=== PATIENT | female | born 1960 | race African-American/Black ===

== ENCOUNTER → 2016-08-10 | Outpatient (CLI) | payer MEDICARE, MEDICAID ==
[~2016-08-10] MED LIST: ASPI-1035 PO; ATOR40TA70 PO; CLON0.1T PO; DEXL60CA3 PO; DIPH50CA4 PO; DOXA1TAB PO; FLUT9.9S NS; HYDR-3927 PO; HYDR25TA PO; LOSA100T14 PO; OMEP20CA4 PO; ONDA4TAB5 PO
== END | disposition home or self-care (01) ==
LOC: RAD 12:38
PROVIDERS: ATTEND Podiatrist Foot & Ankle Surgery
DX: S93.402A Sprain of unspecified ligament of left ankle, initial encounter (principal); S93.602A Unspecified sprain of left foot, initial encounter; X58.XXXA Exposure to other specified factors, initial encounter; Y93.89 Activity, other specified; Y92.89 Other specified places as the place of occurrence of the external cause; Y99.8 Other external cause status
CPT/HCPCS: 73610; 73630

== ENCOUNTER → 2017-05-12 | Outpatient (CLI) | payer MEDICARE, MEDICAID ==
[~2017-05-12] MED LIST changes: -ASPI-1035 PO; +ASPI-1159 PO; -HYDR-3927 PO; +HYDR-4001 PO
== END | disposition home or self-care (01) ==
LOC: MAMMO 09:37
PROVIDERS: ATTEND Specialist
DX: Z12.31 Encounter for screening mammogram for malignant neoplasm of breast (principal)
CPT/HCPCS: 77067

== ENCOUNTER 2017-07-15 14:49 | Inpatient (IN) | payer OTHER, MEDICAID ==
[~2017-07-15] VITALS: Ht 157.5 cm; Wt 97.5 kg
[2017-07-15] MEDS ORDERED: ASPIRIN 81MG TABLET PO ONE (16:45)
[2017-07-15] MEDS: NITROGLYCERIN 0.4MG TABLET SL SL PRN ×2 (16:58→17:47)
[2017-07-15 17:06] LABS: BASOPHILS % 0.9 % (0.0-2.0); EOSINOPHILS % 3.5 % (0.0-5.0); HEMATOCRIT. 37.3 % (36.0-48.0); HEMOGLOBIN. 12.3 g/dL (12.0-16.0); LYMPHOCYTES % 13.7 % (20.0-50.0); MEAN CORPUSCULAR VOLUME 84.9 fL (81.0-99.0); MEAN PLATELET VOLUME 10.9 fl (7.4-10.4); MONOCYTES % 6.4 % (2.0-8.0); NEUTROPHILS % 75.5 % (40.0-76.0); PLATELET 187 x1000/uL (130-400); RED BLOOD CELL COUNT 4.39 mill/uL (4.2-5.4); RED CELL DISTRIBUTION WIDTH 14.4 % (11.6-14.6)
[2017-07-15 17:13] LABS: INR 1.1
[2017-07-15 17:16] LABS: CHLORIDE 108 mEq/L (98-107)
[2017-07-15] MEDS ORDERED: CYCLOBENZAPRINE 10MG TABLET PO ONE (18:15)
[2017-07-15] MEDS ORDERED: KETOROLAC 30MG/ML VIAL IV STA (19:49)
[2017-07-15] MEDS ORDERED: CLONIDINE 0.1MG TABLET PO ONE (20:00)
[2017-07-16] MEDS ORDERED: CLONIDINE 0.2MG TABLET ONE (01:17)
[2017-07-16 02:00] VITALS: BP 179/89
[2017-07-16 04:00] VITALS: BP 162/81
[2017-07-16] MEDS: MORPHINE SULFATE 4 MG/ML CPJ (NOT FOR IM USE) IV PRN ×3 (04:14→16:50)
[2017-07-16] MEDS: NITROGLYCERIN OINT 1GM/INCH UDPKT TD SCH ×2 (06:06→14:00)
[2017-07-16 07:21] LABS: HDL CHOLESTEROL 36 mg/dL (40-59); LDL CHOLESTEROL 158 mg/dL (5-100)
[2017-07-16 08:00] VITALS: BP 160/93
[2017-07-16] MEDS ORDERED: METOPROLOL TARTRATE 50MG TABLET PO SCH (09:00)
[2017-07-16] MEDS ORDERED: ASPIRIN 325MG EC TABLET PO SCH (09:00)
[2017-07-16] MEDS ORDERED: CLONIDINE 0.1MG TABLET PO PRN (09:15)
[2017-07-16] MEDS ORDERED: OMEPRAZOLE 20MG CAPSULE EXTENDED RELEASE PO SCH (09:15)
[2017-07-16] MEDS ORDERED: LOSARTAN POTASSIUM 100 MG TABLET PO SCH (09:15)
[2017-07-16] MEDS ORDERED: REGADENOSON 0.4 MG/5 ML IV NR (11:15)
[2017-07-16] MEDS ORDERED: CLONIDINE 0.1MG TABLET PO SCH (11:24)
[2017-07-16] MEDS ORDERED: AMLODIPINE 2.5MG TABLET PO SCH (11:25)
[2017-07-16] MEDS ORDERED: REGADENOSON 0.4 MG/5 ML IV ONE (12:14)
[2017-07-16 16:00] VITALS: BP 130/89
[2017-07-16 16:50] VITALS: BP 160/93
[2017-07-16] MEDS ORDERED: ATORVASTATIN CALCIUM 40MG TABLET PO SCH (21:00)
== END 2017-07-16 19:40 | disposition home or self-care (01) | DRG 311 ==
LOC: ER 15:08 → 8WST 20:24 → EDBEDREQTM 20:30 → EDBEDREQ 20:30 → ENRESERV 21:55
PROVIDERS: ADMIT Internal Medicine; ATTEND Internal Medicine
DX: I20.0 Unstable angina (principal); I11.9 Hypertensive heart disease without heart failure; E66.9 Obesity, unspecified; K21.9 Gastro-esophageal reflux disease without esophagitis; E78.00 Pure hypercholesterolemia, unspecified; E78.5 Hyperlipidemia, unspecified; F12.90 Cannabis use, unspecified, uncomplicated; Z79.82 Long term (current) use of aspirin; Z79.899 Other long term (current) drug therapy; Z86.73 Personal history of transient ischemic attack (TIA), and cerebral infarction without residual deficits
CPT/HCPCS: 36415; 71045; 78452; 80053; 80061; 83880; 84443; 84484; 85025; 85610; 93005; 93017; 93306; 96374; 99291; A9500; J1885; J2270; J2785

== ENCOUNTER 2017-12-20 09:27 | Observation (INO) | payer OTHER, MEDICAID ==
[~2017-12-20] VITALS: Ht 157.5 cm; Wt 95.3 kg
[2017-12-20] MEDS ORDERED: METHYLPREDNISOLONE SOD SUCC 125 MG/2 ML VIAL IV STA (09:31)
[2017-12-20] MEDS ORDERED: IPRATROPIUM BROMIDE (0.02%) 0.5MG/2.5ML NEB HHN STA (09:31)
[2017-12-20] MEDS: ALBUTEROL (0.083%) 2.5MG/3ML NEB HHN SCH ×2 (09:45→09:46)
[2017-12-20] MEDS ORDERED: MAGNESIUM 2 G PREMIX 50 ML IV ONE (09:45)
[2017-12-20] MEDS ORDERED: NITROGLYCERIN OINT 1GM/INCH UDPKT TD ONE (10:00)
[2017-12-20 11:28] LABS: BASOPHILS % 0.3 % (0.0-2.0); EOSINOPHILS % 1.9 % (0.0-5.0); HEMOGLOBIN. 12.3 g/dL (12.0-16.0); LYMPHOCYTES % 11.9 % (20.0-50.0); MEAN CORPUSCULAR VOLUME 87.3 fL (81.0-99.0); MEAN PLATELET VOLUME 10.8 fl (7.4-10.4); MONOCYTES % 6.5 % (2.0-8.0); NEUTROPHILS % 79.4 % (40.0-76.0); PLATELET 166 x1000/uL (130-400); RED BLOOD CELL COUNT 4.24 mill/uL (4.2-5.4)
[2017-12-20 11:35] LABS: CHLORIDE 107 mEq/L (98-107)
[2017-12-20 11:36] LABS: INR 1.2; PROTHROMBIN TIME 12.5 sec (9.1-11.1)
[2017-12-20] MEDS ORDERED: HYDROCODONE/ACETAMINOPHEN 5/325MG TABLET PO ONE (14:30)
[2017-12-20] MEDS ORDERED: ACETAMINOPHEN 325MG TABLET PO PRN (14:45)
[2017-12-20] MEDS ORDERED: ACETAMINOPHEN 650MG SUPP PR PRN (14:45)
[2017-12-20] MEDS ORDERED: IPRATROPIUM/ALBUTEROL 0.5-3(2.5)MG/3ML NEB INH PRN (14:45)
[2017-12-20] MEDS ORDERED: DIPHENHYDRAMINE 50MG/ML VIAL IV PRN (14:45)
[2017-12-20] MEDS ORDERED: MAGNESIUM/ALUMINUM HYDROXIDE/SIMETHICONE 30ML UDC PO PRN (14:45)
[2017-12-20] MEDS ORDERED: NA PHOS,M-B/NA PHOS,DI-BA ENEMA 118ML PR PRN (14:45)
[2017-12-20] MEDS: CLONIDINE 0.1MG TABLET PO PRN ×3 (16:13→23:23)
[2017-12-20 17:30] VITALS: BP 169/99
[2017-12-20] MEDS ORDERED: ONDANSETRON 4MG ODT PO PRN (18:00)
[2017-12-20] MEDS ORDERED: MECLIZINE 25MG TABLET PO PRN (18:30)
[2017-12-20] MEDS: MONTELUKAST SODIUM 10MG TABLET PO SCH (18:39)
[2017-12-20] MEDS: METHYLPREDNISOLONE SOD SUCC 40 MG/ML VIAL IV SCH (18:40)
[2017-12-20] MEDS: HYDROCHLOROTHIAZIDE 25MG TABLET PO SCH (18:40)
[2017-12-20] MEDS: HYDROCODONE/ACETAMINOPHEN 5/325MG TABLET PO PRN ×2 (18:44→23:15)
[2017-12-20 18:56] LABS: BG BASE EXCESS -4.8 mmol/L (-2.0-2.0); BG CARBOXYHEMOGLOBIN 0.5 % (0.5-1.5); BG DEOXYHEMOGLOBIN 5.6 % (0.0-5.0); BG FRACTION INSPIRED OXYGEN 21; BG HCO3 ACT 19.1 mmol/L (22.0-26.0); BG METHEMOGLOBIN 0.2 % (0.0-1.5); BG OXYGEN SATURATION 94.4 % (92.0-98.5); BG OXYHEMOGLOBIN 93.7 % (94.0-97.0); BG PCO2 32.2 mmHg (35.0-45.0); BG PH 7.392 (7.350-7.450); BG PO2 73.2 mmHg (75.0-100.0); BG SAMPLE SITE RIGHT BRACHIAL; BG TOTAL HEMOGLOBIN 12.9 g/dL (12.0-18.0); BG VENT MODE ROOM AIR
[2017-12-20 19:21] LABS: CLARITY URINE CLEAR (CLEAR); COLOR URINE YELLOW (YELLOW); KETONES URINE NEGATIVE (NEGATIVE); LEUKOCYTE ESTERASE URINE TRACE (NEGATIVE); NITRITE URINE NEGATIVE (NEGATIVE); OCCULT BLOOD URINE NEGATIVE (NEGATIVE); PROTEIN URINE 2+ (NEGATIVE); SPECIFIC GRAVITY URINE 1.013 (1.005-1.030); UROBILINOGEN URINE 0.2 E.U./dL (0.2-1.0)
[2017-12-20 19:56] LABS: METHADONE URINE SCREEN NEGATIVE (NEGATIVE); OPIATES URINE SCREEN NEGATIVE (NEGATIVE)
[2017-12-20 19:57] LABS: *AMPHETAMINES SCREEN URINE NEGATIVE (NEGATIVE); *BARBITURATES SCREEN URINE NEGATIVE (NEGATIVE); *BENZODIAZEPINES SCREEN URINE NEGATIVE (NEGATIVE); *COCAINE SCREEN URINE NEGATIVE (NEGATIVE); CANNABINOID URINE SCREEN PRESUMTIVE POSITIVE (NEGATIVE); PHENCYCLIDINE URINE SCREEN NEGATIVE (NEGATIVE)
[2017-12-20 20:00] VITALS: BP 187/96
[2017-12-20] MEDS ORDERED: LEVOFLOXACIN 500MG PREMIX 100 ML IV SCH (20:00)
[2017-12-20] MEDS ORDERED: ENOXAPARIN 40MG/0.4ML SYR SUBCUT SCH (20:00)
[2017-12-20] MEDS ORDERED: CLONIDINE 0.1MG TABLET PO NR (20:27)
[2017-12-20] MEDS: FAMOTIDINE 20MG/2ML VIAL IV SCH (20:38)
[2017-12-20] MEDS ORDERED: ATORVASTATIN CALCIUM 40MG TABLET PO SCH (21:00)
[2017-12-21] VITALS: BP_SYST 166; BP_SYST 167; BP_SYST 181; BP_DIAS 85; BP_DIAS 93; BP_DIAS 94
[2017-12-21 00:02] LABS: CREATINE KINASE 118 IU/L (26-192)
[2017-12-21 00:03] LABS: CREATINE KINASE MB FRACTION 1.9 ng/mL (0.5-3.6)
[2017-12-21] MEDS: METHYLPREDNISOLONE SOD SUCC 40 MG/ML VIAL IV SCH ×3 (01:35→17:43)
[2017-12-21 04:00] VITALS: BP 153/76
[2017-12-21] MEDS: IPRATROPIUM/ALBUTEROL 0.5-3(2.5)MG/3ML NEB HHN SCH ×3 (04:40→13:59)
[2017-12-21 05:49] LABS: BASOPHILS % 0.1 % (0.0-2.0); HEMATOCRIT. 36.3 % (36.0-48.0); MEAN CORPUSCULAR HEMOGLOBIN 28.6 pg (28.0-32.0); MEAN CORPUSCULAR VOLUME 86.8 fL (81.0-99.0); MEAN PLATELET VOLUME 11.2 fl (7.4-10.4); MONOCYTES % 1.3 % (2.0-8.0); NEUTROPHILS % 89.6 % (40.0-76.0); PLATELET 208 x1000/uL (130-400); RED BLOOD CELL COUNT 4.19 mill/uL (4.2-5.4); RED CELL DISTRIBUTION WIDTH 15.2 % (11.6-14.6)
[2017-12-21 06:31] LABS: CHLORIDE 105 mEq/L (98-107)
[2017-12-21 06:46] LABS: CREATINE KINASE MB FRACTION 1.8 ng/mL (0.5-3.6)
[2017-12-21 06:47] LABS: CREATINE KINASE 105 IU/L (26-192)
[2017-12-21 06:48] LABS: LDL CHOLESTEROL 181 mg/dL (5-100)
[2017-12-21 06:49] LABS: HDL CHOLESTEROL 44 mg/dL (40-59)
[2017-12-21] MEDS: FAMOTIDINE 20MG/2ML VIAL IV SCH (07:47)
[2017-12-21] MEDS: HYDROCHLOROTHIAZIDE 25MG TABLET PO SCH (07:47)
[2017-12-21 08:00] VITALS: BP 171/89
[2017-12-21] MEDS ORDERED: MEDICATION NOT ON FORMULARY EA (Losartan Potassium 1 TAB) PO SCH (09:00)
[2017-12-21] MEDS ORDERED: MEDICATION NOT ON FORMULARY EA (Doxazosin Mesylate 1 MG) PO SCH (09:00)
[2017-12-21] MEDS ORDERED: LOSARTAN POTASSIUM 100 MG TABLET PO SCH (09:00)
[2017-12-21] MEDS ORDERED: DOXAZOSIN MESYLATE 2MG TABLET PO SCH (09:00)
[2017-12-21] MEDS ORDERED: ASPIRIN 81MG TABLET PO SCH (09:00)
[2017-12-21] MEDS ORDERED: AMLODIPINE 5MG TABLET PO SCH (10:30)
[2017-12-21] MEDS ORDERED: HYDRALAZINE HCL 50MG TABLET PO SCH ×2 (10:30→21:00)
[2017-12-21 12:00] VITALS: BP_SYST 138; BP_SYST 169; BP_SYST 171; BP_DIAS 76; BP_DIAS 81; BP_DIAS 85
[2017-12-21] MEDS ORDERED: SIMETHICONE 80MG TABLET CHEW PO PRN (12:00)
[2017-12-21 16:00] VITALS: BP 146/74
[2017-12-21] MEDS: MONTELUKAST SODIUM 10MG TABLET PO SCH (17:35)
[2017-12-21 18:58] VITALS: BP 146/74
[2017-12-21] MEDS ORDERED: ENOXAPARIN 30MG/0.3ML SYR SUBCUT SCH (21:00)
[2017-12-22] MEDS ORDERED: AMLODIPINE 5MG TABLET PO SCH (09:00)
== END 2017-12-21 20:15 | disposition home or self-care (01) ==
LOC: ER 09:27 → INTOOBSV 12:32 → 5WST 12:32 → ENRESERV 15:40
PROVIDERS: ADMIT Internal Medicine; ATTEND Internal Medicine
DX: R07.89 Other chest pain (principal); R42 Dizziness and giddiness; R55 Syncope and collapse; R06.02 Shortness of breath; R10.9 Unspecified abdominal pain; E78.00 Pure hypercholesterolemia, unspecified; F12.90 Cannabis use, unspecified, uncomplicated; F48.8 Other specified nonpsychotic mental disorders; I63.9 Cerebral infarction, unspecified; J44.1 Chronic obstructive pulmonary disease with (acute) exacerbation; I11.0 Hypertensive heart disease with heart failure; I50.9 Heart failure, unspecified; Z87.891 Personal history of nicotine dependence; Z79.899 Other long term (current) drug therapy
CPT/HCPCS: 36415; 36600; 70450; 70551; 71045; 74018; 80053; 80061; 80305; 81003; 82375; 82550; 82553; 82805; 83036; 83690; 83880; 84439; 84443; 84484; 85025; 85379; 85610; 93005; 93306; 93880; 94640; 96365; 96366; 96375; 96376; 97162; 99285; C1893; G0378; J1650; J2920; J2930; J3490; J7611; J7620; J1956; J8597

== ENCOUNTER 2019-03-02 00:43 | Inpatient (IN) | payer OTHER, MEDICAID ==
[~2019-03-02] VITALS: Ht 157.5 cm; Wt 92.5 kg
[~2019-03-02 00:43] MED LIST changes: -ASPI-1159 PO; +ASPI-1393 PO; -DEXL60CA3 PO; -LOSA100T14 PO; +LOSA100T32 PO
[2019-03-02] MEDS ORDERED: MORPHINE SULFATE 4 MG/ML CPJ (NOT FOR IM USE) IV STA (00:59)
[2019-03-02] MEDS ORDERED: ONDANSETRON HCL 4MG/2ML INJ IV STA (00:59)
[2019-03-02] MEDS ORDERED: SODIUM CHLORIDE 0.9% 1,000 ML IV ONE (00:59)
[2019-03-02] MEDS ORDERED: DILTIAZEM HCL 5MG/ML 5ML VIAL IV ONE (01:45)
[2019-03-02 01:47] LABS: BASOPHILS % 0.9 % (0.0-2.0); EOSINOPHILS % 0.6 % (0.0-5.0); HEMATOCRIT. 50.2 % (36.0-48.0); HEMOGLOBIN. 16.3 g/dL (12.0-16.0); LYMPHOCYTES % 9.4 % (20.0-50.0); MEAN CORPUSCULAR HEMOGLOBIN 28.9 pg (28.0-32.0); MEAN CORPUSCULAR VOLUME 88.9 fL (81.0-99.0); MEAN PLATELET VOLUME 11.3 fl (7.4-10.4); MONOCYTES % 5.4 % (2.0-8.0); NEUTROPHILS % 83.7 % (40.0-76.0); PLATELET 212 x1000/uL (130-400); RED BLOOD CELL COUNT 5.65 mill/uL (4.2-5.4); RED CELL DISTRIBUTION WIDTH 14.7 % (11.6-14.6)
[2019-03-02 02:29] LABS: CHLORIDE 113 mEq/L (98-107)
[2019-03-02 02:34] LABS: ETHANOL BLOOD < 10 mg/dL
[2019-03-02 04:15] LABS: CLARITY URINE CLOUDY (CLEAR); COLOR URINE YELLOW (YELLOW); KETONES URINE 1+ (NEGATIVE); LEUKOCYTE ESTERASE URINE 1+ (NEGATIVE); NITRITE URINE NEGATIVE (NEGATIVE); OCCULT BLOOD URINE TRACE (NEGATIVE); PH URINE 5.5 (4.5-8.0); PROTEIN URINE 4+ (NEGATIVE); SPECIFIC GRAVITY URINE 1.017 (1.005-1.030); UROBILINOGEN URINE 0.2 E.U./dL (0.2-1.0)
[2019-03-02 04:28] LABS: *AMPHETAMINES SCREEN URINE NEGATIVE (NEGATIVE); *BARBITURATES SCREEN URINE NEGATIVE (NEGATIVE); *BENZODIAZEPINES SCREEN URINE NEGATIVE (NEGATIVE); *COCAINE SCREEN URINE NEGATIVE (NEGATIVE); METHADONE URINE SCREEN NEGATIVE (NEGATIVE); OPIATES URINE SCREEN PRESUMTIVE POSITIVE (NEGATIVE)
[2019-03-02 04:29] LABS: CANNABINOID URINE SCREEN PRESUMTIVE POSITIVE (NEGATIVE); PHENCYCLIDINE URINE SCREEN NEGATIVE (NEGATIVE)
[2019-03-02] MEDS ORDERED: LEVOFLOXACIN 750MG PREMIX 150 ML IV ONE (05:15)
[2019-03-02] MEDS ORDERED: HYDRALAZINE 20MG/ML VIAL IV ONE (05:30)
[2019-03-02] MEDS ORDERED: MORPHINE SULFATE 2 MG/ML CPJ (NOT FOR IM USE) IV SCH (09:00)
[2019-03-02 10:00] VITALS: BP 167/78
[2019-03-02] MEDS ORDERED: LIDOCAINE HCL/PF 1% 2ML VIAL ONE (10:26)
[2019-03-02 11:00] VITALS: BP 165/78
[2019-03-02 12:00] VITALS: BP 179/91
[2019-03-02] MEDS ORDERED: IPRATROPIUM/ALBUTEROL 0.5-3(2.5)MG/3ML NEB NEB PRN (12:00)
[2019-03-02] MEDS ORDERED: DIPHENHYDRAMINE 50MG/ML VIAL IV PRN (12:00)
[2019-03-02] MEDS ORDERED: CLONIDINE 0.1MG TABLET PO PRN (12:00)
[2019-03-02] MEDS ORDERED: NA PHOS,M-B/NA PHOS,DI-BA ENEMA 118ML PR PRN (12:00)
[2019-03-02] MEDS ORDERED: ACETAMINOPHEN 650MG SUPP PR PRN (12:00)
[2019-03-02] MEDS ORDERED: DOCUSATE SODIUM 100MG CAPSULE PO PRN (12:00)
[2019-03-02] MEDS ORDERED: GUAIFENESIN 200MG/10ML SUGAR FREE UDC PO PRN (12:00)
[2019-03-02] MEDS ORDERED: ONDANSETRON HCL 4MG/2ML INJ IV PRN (12:00)
[2019-03-02] MEDS ORDERED: HYDROCODONE/ACETAMINOPHEN 5/325MG TABLET PO PRN (12:00)
[2019-03-02] MEDS ORDERED: MAGNESIUM/ALUMINUM HYDROXIDE/SIMETHICONE 30ML UDC PO PRN (12:00)
[2019-03-02] MEDS ORDERED: DILTIAZEM HCL 5MG/ML 5ML VIAL IV PRN (12:00)
[2019-03-02] MEDS ORDERED: LORAZEPAM 0.5MG TABLET PO PRN (12:00)
[2019-03-02] MEDS ORDERED: ACETAMINOPHEN 325MG TABLET PO PRN (12:00)
[2019-03-02 12:44] LABS: BASOPHILS % 0.5 % (0.0-2.0); EOSINOPHILS % 1.1 % (0.0-5.0); HEMATOCRIT. 38.7 % (36.0-48.0); HEMOGLOBIN. 12.7 g/dL (12.0-16.0); LYMPHOCYTES % 12.8 % (20.0-50.0); MEAN CORPUSCULAR VOLUME 88.2 fL (81.0-99.0); MEAN PLATELET VOLUME 10.8 fl (7.4-10.4); MONOCYTES % 8.8 % (2.0-8.0); NEUTROPHILS % 76.8 % (40.0-76.0); PLATELET 225 x1000/uL (130-400); RED BLOOD CELL COUNT 4.38 mill/uL (4.2-5.4); RED CELL DISTRIBUTION WIDTH 14.7 % (11.6-14.6)
[2019-03-02 12:59] LABS: BG BASE EXCESS -0.5 mmol/L (-2.0-2.0); BG CARBOXYHEMOGLOBIN 0.5 % (0.5-1.5); BG FRACTION INSPIRED OXYGEN 28; BG HCO3 ACT 24.7 mmol/L (22.0-26.0); BG METHEMOGLOBIN 0.1 % (0.0-1.5); BG OXYHEMOGLOBIN 93.4 % (94.0-97.0); BG PCO2 42.8 mmHg (35.0-45.0); BG PH 7.379 (7.350-7.450); BG PO2 69.1 mmHg (75.0-100.0); BG SAMPLE SITE RIGHT BRACHIAL; BG TOTAL HEMOGLOBIN 13.4 g/dL (12.0-18.0); BG VENT MODE NASAL CANNULA
[2019-03-02] MEDS: PIPERACILLIN/TAZOBACTAM 3.375 G in DEXT 5% WATER 100 ML IV SCH ×2 (13:13→18:29)
[2019-03-02] MEDS: HYDRALAZINE 20MG/ML VIAL IV PRN (13:14)
[2019-03-02] MEDS: FAMOTIDINE 20MG/2ML VIAL IV SCH (13:15)
[2019-03-02] MEDS ORDERED: DEXTROSE 50% WATER 50ML SYRINGE IV PRN (13:45)
[2019-03-02] MEDS: MORPHINE SULFATE 4 MG/ML CPJ (NOT FOR IM USE) IV PRN (14:44)
[2019-03-02] MEDS: ASPIRIN 81MG EC TABLET PO SCH (14:55)
[2019-03-02] MEDS: LOSARTAN POTASSIUM 100 MG TABLET PO SCH (14:55)
[2019-03-02] MEDS: CLONIDINE 0.1MG TABLET PO SCH ×2 (14:56→22:24)
[2019-03-02] MEDS: ENOXAPARIN 40MG/0.4ML SYR SUBCUT SCH (14:57)
[2019-03-02] MEDS ORDERED: DILTIAZEM HCL 120MG TABLET PO SCH (15:00)
[2019-03-02 16:00] VITALS: BP 148/89
[2019-03-02] MEDS ORDERED: IOHEXOL-300 100 ML BOTTLE ONE (16:54)
[2019-03-02] MEDS: BUDESONIDE 0.5MG/2ML NEB HHN SCH ×2 (17:15→20:26)
[2019-03-02] MEDS: IPRATROPIUM/ALBUTEROL 0.5-3(2.5)MG/3ML NEB NEB SCH ×2 (17:21→20:26)
[2019-03-02 17:23] LABS: CREATINE KINASE MB FRACTION 2.8 ng/mL (0.5-3.6)
[2019-03-02] MEDS: BLOOD SUGAR DIAGNOSTIC STRIP TEST SCH ×2 (17:40→21:00)
[2019-03-02] MEDS: DIGOXIN 125MCG TABLET PO SCH ×2 (18:00→18:30)
[2019-03-02] MEDS: INSULIN LISPRO 100 UNITS/ML SUBCUT SCH ×2 (18:10→21:00)
[2019-03-02 20:00] VITALS: BP 193/91
[2019-03-03] VITALS: BP 154/70
[2019-03-03 01:01] LABS: CREATINE KINASE MB FRACTION 3.2 ng/mL (0.5-3.6)
[2019-03-03] MEDS: IPRATROPIUM/ALBUTEROL 0.5-3(2.5)MG/3ML NEB NEB SCH ×3 (02:14→20:45)
[2019-03-03 04:00] VITALS: BP 179/91
[2019-03-03] MEDS: CLONIDINE 0.1MG TABLET PO SCH (06:09)
[2019-03-03] MEDS: PIPERACILLIN/TAZOBACTAM 3.375 G in DEXT 5% WATER 100 ML IV SCH ×5 (06:10→18:26)
[2019-03-03 07:20] LABS: BASOPHILS % 0.7 % (0.0-2.0); EOSINOPHILS % 1.8 % (0.0-5.0); HEMATOCRIT. 39.4 % (36.0-48.0); HEMOGLOBIN. 12.8 g/dL (12.0-16.0); LYMPHOCYTES % 13.1 % (20.0-50.0); MEAN CORPUSCULAR HEMOGLOBIN 28.9 pg (28.0-32.0); MEAN CORPUSCULAR VOLUME 88.8 fL (81.0-99.0); MEAN PLATELET VOLUME 11.5 fl (7.4-10.4); MONOCYTES % 6.8 % (2.0-8.0); NEUTROPHILS % 77.6 % (40.0-76.0); PLATELET 218 x1000/uL (130-400); RED BLOOD CELL COUNT 4.43 mill/uL (4.2-5.4)
[2019-03-03 07:23] LABS: CHLORIDE 108 mEq/L (98-107)
[2019-03-03] MEDS ORDERED: CLONIDINE 0.2MG TABLET PO PRN (07:30)
[2019-03-03 07:38] LABS: HDL CHOLESTEROL 44 mg/dL (40-59)
[2019-03-03 07:41] LABS: LDL CHOLESTEROL 175 mg/dL (5-100)
[2019-03-03 07:42] LABS: T4 FREE 1.18 ng/dL (0.76-1.46)
[2019-03-03 08:00] VITALS: BP 173/88
[2019-03-03] MEDS: INSULIN LISPRO 100 UNITS/ML SUBCUT SCH ×4 (08:10→21:00)
[2019-03-03] MEDS: BLOOD SUGAR DIAGNOSTIC STRIP TEST SCH ×4 (08:30→21:00)
[2019-03-03] MEDS: LOSARTAN POTASSIUM 100 MG TABLET PO SCH (09:02)
[2019-03-03] MEDS: ASPIRIN 81MG EC TABLET PO SCH (09:03)
[2019-03-03] MEDS: DILTIAZEM HCL 120MG CAPSULE CD 24HR PO SCH (09:03)
[2019-03-03] MEDS: FAMOTIDINE 20MG/2ML VIAL IV SCH (09:03)
[2019-03-03] MEDS: BUDESONIDE 0.5MG/2ML NEB HHN SCH ×2 (09:19→20:45)
[2019-03-03 12:00] VITALS: BP 145/65
[2019-03-03] MEDS: HYDRALAZINE HCL 50MG TABLET PO SCH ×2 (14:37→22:07)
[2019-03-03] MEDS: CLONIDINE 0.2MG TABLET PO SCH ×2 (14:38→22:08)
[2019-03-03] MEDS: ENOXAPARIN 40MG/0.4ML SYR SUBCUT SCH (14:39)
[2019-03-03] MEDS: DIGOXIN 125MCG TABLET PO SCH (18:26)
[2019-03-03 20:00] VITALS: BP 187/86
[2019-03-03] MEDS: ATORVASTATIN CALCIUM 20MG TABLET PO SCH (22:07)
[2019-03-04 00:09] VITALS: BP 183/34
[2019-03-04] MEDS: PIPERACILLIN/TAZOBACTAM 3.375 G in DEXT 5% WATER 100 ML IV SCH ×4 (01:50→18:08)
[2019-03-04] MEDS: IPRATROPIUM/ALBUTEROL 0.5-3(2.5)MG/3ML NEB NEB SCH ×4 (02:06→22:14)
[2019-03-04 04:00] VITALS: BP 188/90
[2019-03-04] MEDS: HYDRALAZINE HCL 50MG TABLET PO SCH (06:25)
[2019-03-04] MEDS: CLONIDINE 0.2MG TABLET PO SCH ×3 (06:26→21:33)
[2019-03-04] MEDS: MORPHINE SULFATE 4 MG/ML CPJ (NOT FOR IM USE) IV PRN ×2 (06:27→18:54)
[2019-03-04] MEDS: BLOOD SUGAR DIAGNOSTIC STRIP TEST SCH ×2 (06:48→13:01)
[2019-03-04 06:53] LABS: BASOPHILS % 1.4 % (0.0-2.0); EOSINOPHILS % 5.4 % (0.0-5.0); HEMATOCRIT. 35.8 % (36.0-48.0); HEMOGLOBIN. 11.7 g/dL (12.0-16.0); LYMPHOCYTES % 23.1 % (20.0-50.0); MEAN CORPUSCULAR HEMOGLOBIN 28.9 pg (28.0-32.0); MEAN CORPUSCULAR VOLUME 88.4 fL (81.0-99.0); MEAN PLATELET VOLUME 11.6 fl (7.4-10.4); MONOCYTES % 7.1 % (2.0-8.0); PLATELET 207 x1000/uL (130-400); RED BLOOD CELL COUNT 4.05 mill/uL (4.2-5.4); RED CELL DISTRIBUTION WIDTH 14.8 % (11.6-14.6)
[2019-03-04 08:00] VITALS: BP 184/100
[2019-03-04] MEDS: INSULIN LISPRO 100 UNITS/ML SUBCUT SCH ×2 (08:09→13:01)
[2019-03-04] MEDS: BUDESONIDE 0.5MG/2ML NEB HHN SCH ×2 (08:42→22:14)
[2019-03-04] MEDS: LOSARTAN POTASSIUM 100 MG TABLET PO SCH (09:21)
[2019-03-04] MEDS: ASPIRIN 81MG EC TABLET PO SCH (09:21)
[2019-03-04] MEDS: DILTIAZEM HCL 120MG CAPSULE CD 24HR PO SCH (09:22)
[2019-03-04] MEDS: FAMOTIDINE 20MG/2ML VIAL IV SCH (09:22)
[2019-03-04] MEDS: HYDRALAZINE 20MG/ML VIAL IV PRN (09:32)
[2019-03-04 12:00] VITALS: BP 170/96
[2019-03-04] MEDS: DILTIAZEM HCL 60MG TABLET PO SCH ×2 (12:41→18:09)
[2019-03-04] MEDS: HYDRALAZINE HCL 100MG TABLET PO SCH ×2 (13:01→21:33)
[2019-03-04] MEDS: ENOXAPARIN 40MG/0.4ML SYR SUBCUT SCH (13:09)
[2019-03-04] MEDS ORDERED: LACTULOSE 20G/30ML UDC PO NR (14:30)
[2019-03-04] MEDS ORDERED: AMLODIPINE 5MG TABLET PO NR (14:30)
[2019-03-04] MEDS ORDERED: BENZONATATE 100MG CAPSULE PO PRN (14:30)
[2019-03-04] MEDS ORDERED: GUAIFENESIN 200MG/10ML SUGAR FREE UDC PO ONE (14:30)
[2019-03-04] MEDS ORDERED: BENZONATATE 100MG CAPSULE PO NR (14:30)
[2019-03-04] MEDS ORDERED: BISACODYL 10MG SUPP PR NR (15:00)
[2019-03-04] MEDS ORDERED: KETOROLAC 30MG/ML VIAL IV NR (15:00)
[2019-03-04 16:15] LABS: BG BASE EXCESS 0.8 mmol/L (-2.0-2.0); BG CARBOXYHEMOGLOBIN 0.4 % (0.5-1.5); BG DEOXYHEMOGLOBIN 8.2 % (0.0-5.0); BG FRACTION INSPIRED OXYGEN 21; BG HCO3 ACT 24.8 mmol/L (22.0-26.0); BG METHEMOGLOBIN 0.2 % (0.0-1.5); BG OXYGEN SATURATION 91.8 % (92.0-98.5); BG OXYHEMOGLOBIN 91.2 % (94.0-97.0); BG PCO2 37.5 mmHg (35.0-45.0); BG PH 7.438 (7.350-7.450); BG PO2 59.2 mmHg (75.0-100.0); BG SAMPLE SITE LEFT RADIAL; BG TOTAL HEMOGLOBIN 12.8 g/dL (12.0-18.0); BG VENT MODE ROOM AIR
[2019-03-04] MEDS: DIGOXIN 125MCG TABLET PO SCH (18:08)
[2019-03-04 18:54] VITALS: BP 156/85
[2019-03-04] MEDS ORDERED: CEFEPIME 1,000 MG in DEXTROSE 5% WATER 50 ML IV SCH (20:00)
[2019-03-04] MEDS ORDERED: NAPROXEN 250MG TABLET PO SCH (20:00)
[2019-03-04] MEDS: ATORVASTATIN CALCIUM 20MG TABLET PO SCH (21:33)
[2019-03-04] MEDS ORDERED: HYDRALAZINE HCL 50MG TABLET PO SCH (22:00)
[2019-03-04] MEDS ORDERED: GABAPENTIN 100MG CAPSULE PO SCH (22:00)
== END 2019-03-04 22:30 | DRG 309 ==
LOC: ER 00:43 → 7WST 05:07 → EDBEDREQTM 05:12 → EDBEDREQ 05:12 → ENRESERV 07:31
PROVIDERS: ADMIT Internal Medicine; ATTEND Internal Medicine
DX: I47.1 Supraventricular tachycardia (principal); E87.2 Acidosis; J45.901 Unspecified asthma with (acute) exacerbation; R78.81 Bacteremia; N39.0 Urinary tract infection, site not specified; E11.65 Type 2 diabetes mellitus with hyperglycemia; E78.00 Pure hypercholesterolemia, unspecified; E78.5 Hyperlipidemia, unspecified; E86.0 Dehydration; F17.210 Nicotine dependence, cigarettes, uncomplicated; K59.00 Constipation, unspecified; J06.9 Acute upper respiratory infection, unspecified; R09.1 Pleurisy; R80.9 Proteinuria, unspecified; I10 Essential (primary) hypertension; I16.0 Hypertensive urgency; J44.9 Chronic obstructive pulmonary disease, unspecified; Z82.49 Family history of ischemic heart disease and other diseases of the circulatory system; Z86.73 Personal history of transient ischemic attack (TIA), and cerebral infarction without residual deficits; Z79.899 Other long term (current) drug therapy
CPT/HCPCS: 36415; 36600; 71045; 74177; 76700; 80048; 80061; 80162; 80305; 80320; 81003; 82375; 82550; 82553; 82805; 82962; 83036; 83605; 83880; 84439; 84443; 84484; 93005; 93306; 93970; 94640; 96361; 96365; 96375; 96376; 97162; 99291; J0360; J0692; J1650; J1885; J1956; J2270; J2405; J2543; J3490; J7030; J7040; J7060; J7620; J7626; Q9967; G0480

== ENCOUNTER 2019-03-28 11:31 | Emergency (ER) | payer OTHER, MEDICAID ==
[~2019-03-28] VITALS: Ht 157.5 cm; Wt 86.0 kg
[2019-03-28] MEDS ORDERED: VISCOUS LIDOCAINE 2% 15 ML UDC PO STA (12:16)
[2019-03-28] MEDS ORDERED: FAMOTIDINE 20MG/2ML VIAL IV STA (12:16)
[2019-03-28] MEDS ORDERED: MAGNESIUM/ALUMINUM HYDROXIDE/SIMETHICONE 30ML UDC PO STA (12:16)
[2019-03-28] MEDS ORDERED: ONDANSETRON HCL 4MG/2ML INJ IV STA (12:16)
[2019-03-28] MEDS ORDERED: MORPHINE SULFATE 4 MG/ML CPJ (NOT FOR IM USE) IV ONE (12:30)
[2019-03-28] MEDS ORDERED: FAMOTIDINE 20MG/2ML VIAL IV ONE (13:15)
[2019-03-28] MEDS ORDERED: ONDANSETRON 4MG ODT PO ONE (13:15)
[2019-03-28 13:30] VITALS: BP 139/68
[2019-03-28] MEDS ORDERED: FAMOTIDINE 20MG TABLET PO ONE (13:30)
== END 2019-03-28 13:30 | disposition home or self-care (01) ==
LOC: ER 11:31
DX: R10.13 Epigastric pain (principal); R11.0 Nausea; I10 Essential (primary) hypertension; K29.70 Gastritis, unspecified, without bleeding; F41.9 Anxiety disorder, unspecified; J44.9 Chronic obstructive pulmonary disease, unspecified; F12.10 Cannabis abuse, uncomplicated; K80.51 Calculus of bile duct without cholangitis or cholecystitis with obstruction; Z86.73 Personal history of transient ischemic attack (TIA), and cerebral infarction without residual deficits; Z79.899 Other long term (current) drug therapy
CPT/HCPCS: 96374; 96375; 99284; J2270; J3490; Q0162; J2405

== ENCOUNTER 2020-08-07 01:46 | Inpatient (IN) | payer BC, MEDICAID ==
[~2020-08-07] VITALS: Ht 162.6 cm; Wt 81.6 kg
[~2020-08-07 01:46] MED LIST changes: -ASPI-1393 PO; +ASPI-1497 PO
[2020-08-07] MEDS ORDERED: ONDANSETRON HCL 4MG/2ML INJ IV STA (02:02)
[2020-08-07] MEDS ORDERED: MORPHINE SULFATE 4 MG/ML CPJ (NOT FOR IM USE) IV STA (02:02)
[2020-08-07] MEDS ORDERED: ASPIRIN 325MG TABLET PO ONE (02:15)
[2020-08-07 02:33] LABS: CHLORIDE 106 mEq/L (98-107)
[2020-08-07 02:35] LABS: PROTHROMBIN TIME 10.6 sec (9.6-11.0)
[2020-08-07 02:37] LABS: ETHANOL BLOOD < 10 mg/dL
[2020-08-07 02:42] LABS: BASOPHILS % 0.6 % (0.0-2.0); EOSINOPHILS % 1.2 % (0.0-5.0); HEMATOCRIT. 39.4 % (36.0-48.0); MEAN CORPUSCULAR HEMOGLOBIN 28.3 pg (28.0-32.0); MEAN CORPUSCULAR VOLUME 85.6 fL (81.0-99.0); MONOCYTES % 5.2 % (2.0-8.0); PLATELET 236 x1000/uL (130-400); RED BLOOD CELL COUNT 4.61 mill/uL (4.2-5.4); RED CELL DISTRIBUTION WIDTH 14.4 % (11.6-14.6)
[2020-08-07] MEDS ORDERED: MORPHINE SULFATE 2 MG/ML CPJ (NOT FOR IM USE) IV NR (08:30)
[2020-08-07] MEDS ORDERED: CLONIDINE 0.2MG TABLET PO PRN (08:30)
[2020-08-07] MEDS ORDERED: HYDRALAZINE 20MG/ML VIAL IV NR (10:15)
[2020-08-07] MEDS: MORPHINE SULFATE 2 MG/ML CPJ (NOT FOR IM USE) IV PRN ×2 (11:41→22:42)
[2020-08-07] MEDS: LOSARTAN POTASSIUM 100 MG TABLET PO SCH ×2 (11:42→19:44)
[2020-08-07] MEDS: AMLODIPINE 10MG TABLET PO SCH (12:05)
[2020-08-07] MEDS ORDERED: HYDR100T26 PO (12:24)
[2020-08-07] MEDS ORDERED: AMOX-494 MT (12:24)
[2020-08-07] MEDS ORDERED: MINO2.5T2 PO (12:24)
[2020-08-07] MEDS ORDERED: DIGO250T79 PO (12:24)
[2020-08-07] MEDS ORDERED: UMEC1DIS INH (12:24)
[2020-08-07] MEDS ORDERED: CLON0.2T PO (12:24)
[2020-08-07] MEDS ORDERED: DEXL60CA3 PO (12:24)
[2020-08-07] MEDS ORDERED: CYCL10TA7 MT (12:24)
[2020-08-07 16:00] VITALS: BP 147/71
[2020-08-07 16:19] VITALS: BP 124/49
[2020-08-07] MEDS ORDERED: ONDANSETRON HCL 4MG/2ML INJ IV PRN (16:30)
[2020-08-07] MEDS ORDERED: METHYLPREDNISOLONE SOD SUCC 125 MG/2 ML VIAL IV NR (18:00)
[2020-08-07] MEDS: ENOXAPARIN 40MG/0.4ML SYR SUBCUT SCH (19:44)
[2020-08-07] MEDS: CLONIDINE 0.2MG TABLET PO SCH (19:44)
[2020-08-07] MEDS: MINOXIDIL 2.5MG TABLET PO SCH (19:45)
[2020-08-07 20:00] VITALS: BP 142/74
[2020-08-07] MEDS: IPRATROPIUM/ALBUTEROL 0.5-3(2.5)MG/3ML NEB HHN SCH (21:39)
[2020-08-07] MEDS: CEFTRIAXONE 1,000 MG in DEXTROSE 5% WATER 50 ML IV SCH (22:37)
[2020-08-07] MEDS: AZITHROMYCIN 500 MG in DEXT 5% WATER 250 ML IV SCH (22:38)
[2020-08-07] MEDS: HYDRALAZINE HCL 100MG TABLET PO SCH (22:38)
[2020-08-07] MEDS: ATORVASTATIN CALCIUM 20MG TABLET PO SCH (22:39)
[2020-08-08] VITALS: BP 138/70
[2020-08-08 00:12] LABS: CREATINE KINASE MB FRACTION 6.6 ng/mL (0.5-3.6)
[2020-08-08] MEDS: IPRATROPIUM/ALBUTEROL 0.5-3(2.5)MG/3ML NEB HHN SCH ×6 (00:31→21:29)
[2020-08-08] MEDS: METHYLPREDNISOLONE SOD SUCC 40 MG/ML VIAL IV SCH ×3 (02:00→18:23)
[2020-08-08 04:00] VITALS: BP 138/67
[2020-08-08] MEDS: HYDRALAZINE HCL 100MG TABLET PO SCH ×3 (06:20→21:08)
[2020-08-08] MEDS: OMEPRAZOLE 20MG CAPSULE EXTENDED RELEASE PO SCH (06:20)
[2020-08-08 07:03] LABS: MEAN CORPUSCULAR HEMOGLOBIN 27.7 pg (28.0-32.0); MEAN CORPUSCULAR VOLUME 85.4 fL (81.0-99.0); PLATELET 272 x1000/uL (130-400); RED BLOOD CELL COUNT 4.69 mill/uL (4.2-5.4); RED CELL DISTRIBUTION WIDTH 14.4 % (11.6-14.6)
[2020-08-08 07:12] LABS: CREATINE KINASE MB FRACTION 5.8 ng/mL (0.5-3.6)
[2020-08-08 08:00] VITALS: BP 164/70
[2020-08-08] MEDS: LOSARTAN POTASSIUM 100 MG TABLET PO SCH ×2 (08:36→09:00)
[2020-08-08] MEDS: ASPIRIN 81MG EC TABLET PO SCH (08:36)
[2020-08-08] MEDS: AMLODIPINE 10MG TABLET PO SCH (08:36)
[2020-08-08] MEDS: CLONIDINE 0.2MG TABLET PO SCH ×2 (08:37→18:22)
[2020-08-08] MEDS: DIGOXIN 250MCG TABLET PO SCH (08:37)
[2020-08-08] MEDS: MINOXIDIL 2.5MG TABLET PO SCH (08:37)
[2020-08-08 10:38] LABS: PLATELET ESTIMATE NORMAL
[2020-08-08 12:00] VITALS: BP 132/64
[2020-08-08] MEDS ORDERED: *PATIENT'S OWN MEDICATION STORAGE XX SCH (12:45)
[2020-08-08 16:00] VITALS: BP 113/59
[2020-08-08] MEDS: ENOXAPARIN 40MG/0.4ML SYR SUBCUT SCH (18:23)
[2020-08-08] MEDS: MORPHINE SULFATE 2 MG/ML CPJ (NOT FOR IM USE) IV PRN (18:23)
[2020-08-08 20:00] VITALS: BP 140/58
[2020-08-08] MEDS ORDERED: SODIUM POLYSTYRENE SULFONATE 15 G/60 ML BOT PO NR (20:00)
[2020-08-08] MEDS: ATORVASTATIN CALCIUM 20MG TABLET PO SCH (20:48)
[2020-08-08] MEDS: ACETAMINOPHEN 325MG TABLET PO PRN (20:50)
[2020-08-09] VITALS: BP 138/60
[2020-08-09] MEDS: MORPHINE SULFATE 2 MG/ML CPJ (NOT FOR IM USE) IV PRN ×3 (00:23→14:53)
[2020-08-09] MEDS: IPRATROPIUM/ALBUTEROL 0.5-3(2.5)MG/3ML NEB HHN SCH ×4 (00:39→11:53)
[2020-08-09] MEDS: METHYLPREDNISOLONE SOD SUCC 40 MG/ML VIAL IV SCH ×3 (02:22→17:52)
[2020-08-09] MEDS: CEFTRIAXONE 1,000 MG in DEXTROSE 5% WATER 50 ML IV SCH ×2 (03:32→21:15)
[2020-08-09] MEDS: AZITHROMYCIN 500 MG in DEXT 5% WATER 250 ML IV SCH (03:36)
[2020-08-09 04:42] VITALS: BP 134/101
[2020-08-09] MEDS: HYDRALAZINE HCL 100MG TABLET PO SCH ×3 (07:03→22:00)
[2020-08-09 07:26] LABS: CLARITY URINE CLEAR (CLEAR); COLOR URINE YELLOW (YELLOW); KETONES URINE TRACE (NEGATIVE); LEUKOCYTE ESTERASE URINE NEGATIVE (NEGATIVE); NITRITE URINE NEGATIVE (NEGATIVE); OCCULT BLOOD URINE NEGATIVE (NEGATIVE); PROTEIN URINE 2+ (NEGATIVE); SPECIFIC GRAVITY URINE 1.024 (1.005-1.030); UROBILINOGEN URINE 0.2 E.U./dL (0.2-1.0)
[2020-08-09] MEDS: OMEPRAZOLE 20MG CAPSULE EXTENDED RELEASE PO SCH (07:29)
[2020-08-09 08:00] VITALS: BP 143/72
[2020-08-09] MEDS: AMLODIPINE 10MG TABLET PO SCH (08:38)
[2020-08-09] MEDS: DIGOXIN 250MCG TABLET PO SCH (08:38)
[2020-08-09] MEDS: LOSARTAN POTASSIUM 100 MG TABLET PO SCH (08:39)
[2020-08-09] MEDS: CLONIDINE 0.2MG TABLET PO SCH ×2 (08:39→17:06)
[2020-08-09] MEDS: ASPIRIN 81MG EC TABLET PO SCH (08:39)
[2020-08-09] MEDS: MINOXIDIL 2.5MG TABLET PO SCH (08:40)
[2020-08-09 12:01] VITALS: BP 127/53
[2020-08-09] MEDS ORDERED: DILTIAZEM HCL 5MG/ML 5ML VIAL IV NR (14:00)
[2020-08-09] MEDS: ENOXAPARIN 80MG/0.8ML SYR SUBCUT SCH (14:52)
[2020-08-09 16:00] VITALS: BP 128/62
[2020-08-09] MEDS: DILTIAZEM HCL 60MG TABLET PO SCH (17:52)
[2020-08-09 20:00] VITALS: BP 114/48
[2020-08-09] MEDS: IPRATROPIUM BROMIDE (0.02%) 0.5MG/2.5ML NEB HHN SCH (21:07)
[2020-08-09] MEDS: ATORVASTATIN CALCIUM 20MG TABLET PO SCH (21:15)
[2020-08-09] MEDS: AZITHROMYCIN 500 MG TABLET PO SCH (21:15)
[2020-08-10] VITALS: BP 123/54
[2020-08-10] MEDS: ACETAMINOPHEN 325MG TABLET PO PRN (00:47)
[2020-08-10] MEDS: METHYLPREDNISOLONE SOD SUCC 40 MG/ML VIAL IV SCH ×3 (02:46→17:40)
[2020-08-10] MEDS: IPRATROPIUM BROMIDE (0.02%) 0.5MG/2.5ML NEB HHN SCH ×4 (03:03→21:45)
[2020-08-10 04:00] VITALS: BP 115/64
[2020-08-10] MEDS: ENOXAPARIN 80MG/0.8ML SYR SUBCUT SCH ×2 (04:18→22:19)
[2020-08-10] MEDS: MORPHINE SULFATE 2 MG/ML CPJ (NOT FOR IM USE) IV PRN ×3 (05:24→20:25)
[2020-08-10] MEDS: DILTIAZEM HCL 60MG TABLET PO SCH ×2 (06:00)
[2020-08-10] MEDS: HYDRALAZINE HCL 100MG TABLET PO SCH ×3 (06:00→22:05)
[2020-08-10 07:11] LABS: HEMATOCRIT. 37.6 % (36.0-48.0); HEMOGLOBIN. 12.3 g/dL (12.0-16.0); MEAN CORPUSCULAR HEMOGLOBIN 27.7 pg (28.0-32.0); MEAN CORPUSCULAR VOLUME 84.5 fL (81.0-99.0); MEAN PLATELET VOLUME 11.6 fl (7.4-10.4); PLATELET 312 x1000/uL (130-400); RED BLOOD CELL COUNT 4.45 mill/uL (4.2-5.4); RED CELL DISTRIBUTION WIDTH 14.7 % (11.6-14.6)
[2020-08-10 08:00] VITALS: BP 150/65
[2020-08-10] MEDS: CLONIDINE 0.2MG TABLET PO SCH ×2 (08:30→17:42)
[2020-08-10] MEDS: LOSARTAN POTASSIUM 100 MG TABLET PO SCH (08:31)
[2020-08-10] MEDS: OMEPRAZOLE 20MG CAPSULE EXTENDED RELEASE PO SCH (08:33)
[2020-08-10] MEDS: DIGOXIN 250MCG TABLET PO SCH (08:33)
[2020-08-10] MEDS: ASPIRIN 81MG EC TABLET PO SCH (08:34)
[2020-08-10] MEDS: MINOXIDIL 2.5MG TABLET PO SCH (08:34)
[2020-08-10 12:00] VITALS: BP 145/63
[2020-08-10] MEDS: DILTIAZEM HCL 90MG TABLET PO SCH ×2 (12:55→17:42)
[2020-08-10] MEDS: LACTULOSE 20G/30ML UDC PO SCH ×2 (13:01→21:57)
[2020-08-10 16:00] VITALS: BP 123/66
[2020-08-10] MEDS: SOTALOL HCL 80MG TABLET PO SCH (17:41)
[2020-08-10 18:29] LABS: PLATELET ESTIMATE NORMAL
[2020-08-10 20:00] VITALS: BP 160/62
[2020-08-10] MEDS: CEFTRIAXONE 1,000 MG in DEXTROSE 5% WATER 50 ML IV SCH (20:25)
[2020-08-10] MEDS: ATORVASTATIN CALCIUM 20MG TABLET PO SCH (21:57)
[2020-08-10] MEDS: AZITHROMYCIN 500 MG TABLET PO SCH (21:57)
[2020-08-11] VITALS: BP 153/77
[2020-08-11] MEDS: DILTIAZEM HCL 90MG TABLET PO SCH ×5 (00:19→18:00)
[2020-08-11] MEDS: IPRATROPIUM BROMIDE (0.02%) 0.5MG/2.5ML NEB HHN SCH ×4 (01:16→20:21)
[2020-08-11] MEDS: METHYLPREDNISOLONE SOD SUCC 40 MG/ML VIAL IV SCH ×3 (03:02→18:00)
[2020-08-11] MEDS: MORPHINE SULFATE 2 MG/ML CPJ (NOT FOR IM USE) IV PRN ×2 (04:24→15:24)
[2020-08-11 04:30] VITALS: BP 160/72
[2020-08-11] MEDS: HYDRALAZINE HCL 100MG TABLET PO SCH ×4 (06:00→21:58)
[2020-08-11] MEDS: LACTULOSE 20G/30ML UDC PO SCH ×4 (06:00→21:58)
[2020-08-11] MEDS: OMEPRAZOLE 20MG CAPSULE EXTENDED RELEASE PO SCH ×2 (06:08→07:10)
[2020-08-11 08:00] VITALS: BP 162/71
[2020-08-11 08:18] LABS: DIGOXIN 3.5 ng/mL (0.9-2.0)
[2020-08-11] MEDS: SOTALOL HCL 80MG TABLET PO SCH ×2 (09:00→21:58)
[2020-08-11] MEDS: DIGOXIN 250MCG TABLET PO SCH (09:00)
[2020-08-11] MEDS: ASPIRIN 81MG EC TABLET PO SCH (09:01)
[2020-08-11] MEDS: MINOXIDIL 2.5MG TABLET PO SCH (09:01)
[2020-08-11] MEDS: CLONIDINE 0.2MG TABLET PO SCH ×2 (09:01→17:00)
[2020-08-11] MEDS: LOSARTAN POTASSIUM 100 MG TABLET PO SCH (09:01)
[2020-08-11 12:00] VITALS: BP 135/72
[2020-08-11 16:00] VITALS: BP 154/74
[2020-08-11 17:03] LABS: AMYLASE 81 IU/L (25-115)
[2020-08-11] MEDS: CEFTRIAXONE 1,000 MG in DEXTROSE 5% WATER 50 ML IV SCH (19:56)
[2020-08-11 20:00] VITALS: BP 155/61
[2020-08-11] MEDS: ATORVASTATIN CALCIUM 20MG TABLET PO SCH (21:57)
[2020-08-11] MEDS: AZITHROMYCIN 500 MG TABLET PO SCH (21:57)
[2020-08-11] MEDS: ENOXAPARIN 80MG/0.8ML SYR SUBCUT SCH (21:58)
[2020-08-12] VITALS: BP 156/62
[2020-08-12] MEDS: IPRATROPIUM BROMIDE (0.02%) 0.5MG/2.5ML NEB HHN SCH ×3 (02:05→12:35)
[2020-08-12] MEDS: METHYLPREDNISOLONE SOD SUCC 40 MG/ML VIAL IV SCH ×2 (03:21→10:18)
[2020-08-12 04:00] VITALS: BP 159/79
[2020-08-12] MEDS: MORPHINE SULFATE 2 MG/ML CPJ (NOT FOR IM USE) IV PRN (05:17)
[2020-08-12] MEDS: DILTIAZEM HCL 90MG TABLET PO SCH ×3 (06:00→12:00)
[2020-08-12] MEDS: HYDRALAZINE HCL 100MG TABLET PO SCH ×2 (06:18→14:35)
[2020-08-12] MEDS: LACTULOSE 20G/30ML UDC PO SCH ×2 (06:18→14:35)
[2020-08-12] MEDS: OMEPRAZOLE 20MG CAPSULE EXTENDED RELEASE PO SCH (06:19)
[2020-08-12 06:55] LABS: HEMATOCRIT. 42.9 % (36.0-48.0); HEMOGLOBIN. 13.8 g/dL (12.0-16.0); MEAN CORPUSCULAR HEMOGLOBIN 27.4 pg (28.0-32.0); MEAN CORPUSCULAR VOLUME 85.2 fL (81.0-99.0); MEAN PLATELET VOLUME 11.2 fl (7.4-10.4); PLATELET 359 x1000/uL (130-400); RED BLOOD CELL COUNT 5.04 mill/uL (4.2-5.4); RED CELL DISTRIBUTION WIDTH 14.8 % (11.6-14.6)
[2020-08-12 08:00] VITALS: BP 159/78
[2020-08-12] MEDS: DIGOXIN 250MCG TABLET PO SCH (09:00)
[2020-08-12] MEDS: ASPIRIN 81MG EC TABLET PO SCH (10:19)
[2020-08-12] MEDS: MINOXIDIL 2.5MG TABLET PO SCH (10:20)
[2020-08-12] MEDS: SOTALOL HCL 80MG TABLET PO SCH (10:21)
[2020-08-12] MEDS: LOSARTAN POTASSIUM 100 MG TABLET PO SCH (10:21)
[2020-08-12] MEDS: CLONIDINE 0.2MG TABLET PO SCH (10:22)
[2020-08-12 12:00] VITALS: BP 147/69
[2020-08-12 13:08] LABS: PLATELET ESTIMATE NORMAL
[2020-08-12 16:00] VITALS: BP 139/82
[2020-08-12 16:59] VITALS: BP 147/69
== END 2020-08-12 17:28 | disposition home or self-care (01) | DRG 308 ==
LOC: ER 01:46 → 8WST 06:55 → ENRESERV 07:17
PROVIDERS: ADMIT Internal Medicine; ATTEND Internal Medicine
DX: I48.92 Unspecified atrial flutter (principal); N17.0 Acute kidney failure with tubular necrosis; E44.1 Mild protein-calorie malnutrition; J20.9 Acute bronchitis, unspecified; I16.0 Hypertensive urgency; E11.9 Type 2 diabetes mellitus without complications; E66.9 Obesity, unspecified; E78.5 Hyperlipidemia, unspecified; K59.00 Constipation, unspecified; K76.0 Fatty (change of) liver, not elsewhere classified; J44.9 Chronic obstructive pulmonary disease, unspecified; E78.00 Pure hypercholesterolemia, unspecified; I10 Essential (primary) hypertension; Z86.73 Personal history of transient ischemic attack (TIA), and cerebral infarction without residual deficits; I25.2 Old myocardial infarction; Z79.899 Other long term (current) drug therapy; Z68.30 Body mass index [BMI] 30.0-30.9, adult; R10.9 Unspecified abdominal pain; F03.90 Unspecified dementia, unspecified severity, without behavioral disturbance, psychotic disturbance, mood disturbance, and anxiety; I48.0 Paroxysmal atrial fibrillation
CPT/HCPCS: 36415; 71045; 71275; 74174; 74176; 80048; 80053; 80162; 80320; 81003; 82150; 82550; 82553; 84484; 85025; 93005; 93306; 94640; 99285; C1893; J0360; J0456; J0696; J1650; J2270; J2405; J2920; J2930; J3490; J7040; J7060; G0480

== ENCOUNTER 2020-12-14 12:09 | Emergency (ER) | payer BC, MEDICAID, OTHER ==
[~2020-12-14] VITALS: Ht 157.5 cm; Wt 79.0 kg
[~2020-12-14 12:09] MED LIST changes: -ATOR40TA70 PO; -CLON0.1T PO; +CLON0.2T PO; +CYCL10TA7 MT; +DEXL60CA3 PO; +DIGO250T79 PO; -DIPH50CA4 PO; -DOXA1TAB PO; -HYDR-4001 PO; +HYDR100T26 PO; -HYDR25TA PO; +MINO2.5T2 PO; -OMEP20CA4 PO; -ONDA4TAB5 PO; +UMEC1DIS INH
[2020-12-14] MEDS ORDERED: ACETAMINOPHEN 325MG TABLET PO ONE (13:30)
[2020-12-14 13:59] LABS: BASOPHILS % 0.9 % (0.0-2.0); EOSINOPHILS % 2.9 % (0.0-5.0); HEMATOCRIT. 34.3 % (36.0-48.0); HEMOGLOBIN. 11.4 g/dL (12.0-16.0); LYMPHOCYTES % 13.9 % (20.0-50.0); MEAN CORPUSCULAR HEMOGLOBIN 28.3 pg (28.0-32.0); MEAN CORPUSCULAR VOLUME 85.4 fL (81.0-99.0); MEAN PLATELET VOLUME 10.5 fl (7.4-10.4); MONOCYTES % 7.5 % (2.0-8.0); NEUTROPHILS % 74.8 % (40.0-76.0); PLATELET 226 x1000/uL (130-400); RED BLOOD CELL COUNT 4.01 mill/uL (4.2-5.4); RED CELL DISTRIBUTION WIDTH 15.3 % (11.6-14.6)
[2020-12-14 14:05] LABS: CHLORIDE 106 mEq/L (98-107)
[2020-12-14 14:08] LABS: ETHANOL BLOOD < 10 mg/dL
[2020-12-14 15:00] VITALS: BP 161/80
[2020-12-14] MEDS ORDERED: FUROSEMIDE 20MG/2ML VIAL IVP NR (15:00)
[2020-12-14] MEDS ORDERED: ASPIRIN 81MG TABLET PO ONE (16:30)
[2020-12-14 17:10] LABS: *AMPHETAMINES SCREEN URINE NEGATIVE (NEGATIVE); *BARBITURATES SCREEN URINE NEGATIVE (NEGATIVE); *BENZODIAZEPINES SCREEN URINE NEGATIVE (NEGATIVE); *COCAINE SCREEN URINE NEGATIVE (NEGATIVE); METHADONE URINE SCREEN NEGATIVE (NEGATIVE); OPIATES URINE SCREEN NEGATIVE (NEGATIVE)
[2020-12-14 17:11] LABS: CANNABINOID URINE SCREEN PRESUMTIVE POSITIVE (NEGATIVE); PHENCYCLIDINE URINE SCREEN NEGATIVE (NEGATIVE)
== END 2020-12-14 17:22 | disposition left against medical advice (07) ==
LOC: ER 12:09
DX: R07.9 Chest pain, unspecified (principal); R60.0 Localized edema; R06.00 Dyspnea, unspecified; I10 Essential (primary) hypertension; I25.2 Old myocardial infarction; E11.9 Type 2 diabetes mellitus without complications; E78.00 Pure hypercholesterolemia, unspecified; Z79.82 Long term (current) use of aspirin
CPT/HCPCS: 36415; 71045; 80053; 80305; 80320; 83880; 84484; 85025; 93005; 93970; 96374; 99285; J1940; G0480

== ENCOUNTER 2022-01-14 23:55 | Inpatient (IN) | payer OTHER, MEDICAID ==
[~2022-01-14] VITALS: Ht 162.6 cm; Wt 63.7 kg
[~2022-01-14 23:55] MED LIST changes: +CYCL10TA21 MT; -CYCL10TA7 MT
[2022-01-15] MEDS ORDERED: ASPIRIN 81MG TABLET PO ONE (00:15)
[2022-01-15] MEDS ORDERED: LABETALOL HCL VIAL 20 MG/4 ML VIAL IV ONE (00:15)
[2022-01-15 01:07] LABS: BASOPHILS % 0.7 % (0.0-2.0); HEMATOCRIT. 36.2 % (36.0-48.0); HEMOGLOBIN. 11.2 g/dL (12.0-16.0); LYMPHOCYTES % 8.8 % (20.0-50.0); MEAN CORPUSCULAR HEMOGLOBIN 25.9 pg (28.0-32.0); MEAN CORPUSCULAR VOLUME 83.5 fL (81.0-99.0); MEAN PLATELET VOLUME 10.5 fl (7.4-10.4); MONOCYTES % 7.5 % (2.0-8.0); PLATELET 283 x1000/uL (130-400); RED BLOOD CELL COUNT 4.34 mill/uL (4.2-5.4); RED CELL DISTRIBUTION WIDTH 17.1 % (11.6-14.6)
[2022-01-15 01:16] LABS: CHLORIDE 106 mEq/L (98-107)
[2022-01-15 01:27] LABS: ETHANOL BLOOD < 10 mg/dL
[2022-01-15] MEDS ORDERED: HYDRALAZINE 20MG/ML VIAL IV ONE (01:30)
[2022-01-15] MEDS ORDERED: MORPHINE SULFATE 4 MG/ML CPJ (NOT FOR IM USE) IV ONE (02:30)
[2022-01-15] MEDS ORDERED: GUAIFENESIN 200MG/10ML SUGAR FREE UDC PO PRN (05:30)
[2022-01-15] MEDS ORDERED: MAGNESIUM/ALUMINUM HYDROXIDE/SIMETHICONE 30ML UDC PO PRN (05:30)
[2022-01-15] MEDS ORDERED: DOCUSATE SODIUM 100MG CAPSULE PO PRN (05:30)
[2022-01-15] MEDS ORDERED: ONDANSETRON HCL 4MG/2ML INJ IV PRN (05:30)
[2022-01-15] MEDS ORDERED: TRAMADOL 50MG TABLET PO PRN (05:30)
[2022-01-15] MEDS: HYDRALAZINE HCL 100MG TABLET PO SCH ×4 (06:00→21:21)
[2022-01-15] MEDS: AMLODIPINE 10MG TABLET PO SCH ×2 (06:22→06:26)
[2022-01-15] MEDS ORDERED: DEXTROSE 50% WATER 50ML SYRINGE IV PRN (07:45)
[2022-01-15] MEDS: CLONIDINE 0.1MG TABLET PO PRN (09:10)
[2022-01-15 09:14] LABS: *AMPHETAMINES SCREEN URINE NEGATIVE (NEGATIVE); *BARBITURATES SCREEN URINE NEGATIVE (NEGATIVE); *BENZODIAZEPINES SCREEN URINE NEGATIVE (NEGATIVE); *COCAINE SCREEN URINE NEGATIVE (NEGATIVE); CANNABINOID URINE SCREEN PRESUMTIVE POSITIVE (NEGATIVE); METHADONE URINE SCREEN NEGATIVE (NEGATIVE); OPIATES URINE SCREEN PRESUMTIVE POSITIVE (NEGATIVE); PHENCYCLIDINE URINE SCREEN NEGATIVE (NEGATIVE)
[2022-01-15] MEDS: ENOXAPARIN 40MG/0.4ML SYR SUBCUT SCH (09:16)
[2022-01-15 10:15] VITALS: BP 159/93
[2022-01-15 10:30] VITALS: BP 159/93
[2022-01-15] MEDS: BLOOD SUGAR DIAGNOSTIC STRIP TEST SCH ×3 (11:41→21:21)
[2022-01-15] MEDS: INSULIN LISPRO 100 UNITS/ML SUBCUT SCH ×3 (11:41→21:00)
[2022-01-15 12:00] VITALS: BP 210/98
[2022-01-15] MEDS ORDERED: HYDRALAZINE 20MG/ML VIAL IV NR (12:00)
[2022-01-15] MEDS: MINOXIDIL 2.5MG TABLET PO SCH (12:04)
[2022-01-15 13:37] VITALS: BP 189/80
[2022-01-15] MEDS: LOSARTAN POTASSIUM 100 MG TABLET PO SCH (13:40)
[2022-01-15] MEDS ORDERED: HYDRALAZINE 20MG/ML VIAL IV PRN (15:15)
[2022-01-15 16:00] VITALS: BP 173/86
[2022-01-15 20:00] VITALS: BP 122/77
[2022-01-16] VITALS (8 sets, daily range): BP systolic 120–210; BP diastolic 64–90
[2022-01-16] MEDS: BLOOD SUGAR DIAGNOSTIC STRIP TEST SCH ×4 (05:58→21:15)
[2022-01-16] MEDS: HYDRALAZINE HCL 100MG TABLET PO SCH ×3 (05:58→21:16)
[2022-01-16] MEDS: INSULIN LISPRO 100 UNITS/ML SUBCUT SCH ×4 (07:10→21:00)
[2022-01-16 07:31] LABS: BASOPHILS % 0.9 % (0.0-2.0); EOSINOPHILS % 2.3 % (0.0-5.0); HEMATOCRIT. 40.2 % (36.0-48.0); HEMOGLOBIN. 12.4 g/dL (12.0-16.0); LYMPHOCYTES % 10.8 % (20.0-50.0); MEAN CORPUSCULAR HEMOGLOBIN 26.1 pg (28.0-32.0); MEAN CORPUSCULAR VOLUME 84.4 fL (81.0-99.0); MEAN PLATELET VOLUME 10.7 fl (7.4-10.4); MONOCYTES % 7.6 % (2.0-8.0); NEUTROPHILS % 78.4 % (40.0-76.0); PLATELET 287 x1000/uL (130-400); RED BLOOD CELL COUNT 4.76 mill/uL (4.2-5.4); RED CELL DISTRIBUTION WIDTH 17.6 % (11.6-14.6)
[2022-01-16 07:48] LABS: CHLORIDE 109 mEq/L (98-107)
[2022-01-16 07:55] LABS: HDL CHOLESTEROL 43 mg/dL (40-59); LDL CHOLESTEROL 180 mg/dL (5-100)
[2022-01-16] MEDS: ENOXAPARIN 40MG/0.4ML SYR SUBCUT SCH (08:49)
[2022-01-16] MEDS: AMLODIPINE 10MG TABLET PO SCH (08:49)
[2022-01-16] MEDS: LOSARTAN POTASSIUM 100 MG TABLET PO SCH (08:50)
[2022-01-16] MEDS: MINOXIDIL 2.5MG TABLET PO SCH (08:50)
[2022-01-16] MEDS: DILTIAZEM HCL 60MG TABLET PO SCH ×3 (14:23→23:50)
[2022-01-16] MEDS ORDERED: NALOXONE HCL 0.4MG/ML VIAL IV PRN (16:00)
[2022-01-16] MEDS: ENOXAPARIN 60MG/0.6ML SYR SUBCUT SCH (17:26)
[2022-01-16] MEDS: HYDROCODONE/ACETAMINOPHEN 5/325MG TABLET PO PRN ×2 (18:11→23:50)
[2022-01-16] MEDS: ATORVASTATIN CALCIUM 20MG TABLET PO SCH (21:16)
[2022-01-17] VITALS: BP_SYST 125; BP_SYST 171; BP_DIAS 70; BP_DIAS 72
[2022-01-17] MEDS ORDERED: MORPHINE SULFATE 2 MG/ML CPJ (NOT FOR IM USE) IV NR (01:30)
[2022-01-17 04:00] VITALS: BP 171/72
[2022-01-17] MEDS: DILTIAZEM HCL 60MG TABLET PO SCH ×4 (06:00→17:49)
[2022-01-17] MEDS: HYDRALAZINE HCL 100MG TABLET PO SCH ×4 (06:00→21:19)
[2022-01-17] MEDS: ENOXAPARIN 60MG/0.6ML SYR SUBCUT SCH ×2 (06:12→17:48)
[2022-01-17] MEDS: BLOOD SUGAR DIAGNOSTIC STRIP TEST SCH ×4 (06:19→21:17)
[2022-01-17] MEDS: INSULIN LISPRO 100 UNITS/ML SUBCUT SCH ×4 (06:20→21:00)
[2022-01-17 07:40] LABS: PROTHROMBIN TIME 11.2 sec (9.6-11.0)
[2022-01-17 08:00] VITALS: BP 130/56
[2022-01-17] MEDS: LOSARTAN POTASSIUM 100 MG TABLET PO SCH (09:41)
[2022-01-17 12:00] VITALS: BP 165/66
[2022-01-17 16:00] VITALS: BP 109/67
[2022-01-17 20:00] VITALS: BP 143/56
[2022-01-17] MEDS: ATORVASTATIN CALCIUM 20MG TABLET PO SCH (21:18)
[2022-01-18] VITALS: BP 140/56
[2022-01-18] MEDS: DILTIAZEM HCL 60MG TABLET PO SCH ×5 (00:35→23:53)
[2022-01-18 04:00] VITALS: BP 143/60
[2022-01-18] MEDS: HYDRALAZINE HCL 100MG TABLET PO SCH ×3 (05:31→21:19)
[2022-01-18] MEDS: ENOXAPARIN 60MG/0.6ML SYR SUBCUT SCH ×2 (05:32→18:39)
[2022-01-18] MEDS: BLOOD SUGAR DIAGNOSTIC STRIP TEST SCH ×4 (05:45→21:10)
[2022-01-18] MEDS: INSULIN LISPRO 100 UNITS/ML SUBCUT SCH ×4 (05:45→21:00)
[2022-01-18 08:00] VITALS: BP 136/55
[2022-01-18] MEDS: LOSARTAN POTASSIUM 100 MG TABLET PO SCH (09:24)
[2022-01-18 12:00] VITALS: BP 153/53
[2022-01-18 16:00] VITALS: BP 157/60
[2022-01-18 20:00] VITALS: BP 119/65
[2022-01-18] MEDS: ATORVASTATIN CALCIUM 20MG TABLET PO SCH (21:19)
[2022-01-19] VITALS: BP 155/66
[2022-01-19 04:00] VITALS: BP 127/62
[2022-01-19] MEDS: HYDRALAZINE HCL 100MG TABLET PO SCH ×3 (05:54→21:17)
[2022-01-19] MEDS: DILTIAZEM HCL 60MG TABLET PO SCH ×3 (05:54→18:42)
[2022-01-19] MEDS: INSULIN LISPRO 100 UNITS/ML SUBCUT SCH ×4 (05:55→21:00)
[2022-01-19] MEDS: BLOOD SUGAR DIAGNOSTIC STRIP TEST SCH ×4 (05:55→21:11)
[2022-01-19] MEDS: ENOXAPARIN 60MG/0.6ML SYR SUBCUT SCH ×2 (06:42→18:42)
[2022-01-19 08:00] VITALS: BP 194/78
[2022-01-19] MEDS ORDERED: REGADENOSON 0.4 MG/5 ML IV NR (08:00)
[2022-01-19] MEDS: LOSARTAN POTASSIUM 100 MG TABLET PO SCH (09:04)
[2022-01-19] MEDS: CLONIDINE 0.1MG TABLET PO PRN ×2 (09:06→16:35)
[2022-01-19 12:00] VITALS: BP 168/89
[2022-01-19] MEDS ORDERED: REGADENOSON 0.4 MG/5 ML IV ONE (12:35)
[2022-01-19 16:00] VITALS: BP 199/78
[2022-01-19 20:00] VITALS: BP 167/72
[2022-01-19] MEDS: ATORVASTATIN CALCIUM 20MG TABLET PO SCH (21:17)
[2022-01-20] VITALS: BP 115/76
[2022-01-20 04:00] VITALS: BP 169/74
[2022-01-20] MEDS: DILTIAZEM HCL 60MG TABLET PO SCH ×4 (05:25→18:00)
[2022-01-20] MEDS: HYDRALAZINE HCL 100MG TABLET PO SCH ×2 (05:25→13:57)
[2022-01-20] MEDS: ENOXAPARIN 60MG/0.6ML SYR SUBCUT SCH ×2 (05:25→18:00)
[2022-01-20] MEDS: BLOOD SUGAR DIAGNOSTIC STRIP TEST SCH ×2 (05:51→11:40)
[2022-01-20] MEDS: INSULIN LISPRO 100 UNITS/ML SUBCUT SCH ×2 (05:51→12:10)
[2022-01-20 08:00] VITALS: BP 151/53
[2022-01-20] MEDS ORDERED: LIDOCAINE HCL 1% 30ML VIAL (10MG/ML) ONE (08:11)
[2022-01-20] MEDS: LOSARTAN POTASSIUM 100 MG TABLET PO SCH (09:00)
[2022-01-20] MEDS ORDERED: REGADENOSON 0.4 MG/5 ML IV ONE (09:48)
[2022-01-20] MEDS: ACETAMINOPHEN 325MG TABLET PO PRN ×2 (11:15→16:31)
[2022-01-20 12:00] VITALS: BP 150/58
[2022-01-20 15:41] VITALS: BP 150/58
[2022-01-20 16:00] VITALS: BP 136/61
== END 2022-01-20 19:47 | disposition home health service (06) | DRG 304 ==
LOC: ER 23:55 → EDBD 23:55 → MICUSO 01-15 04:46 → 7EST 01-15 08:51
PROVIDERS: ADMIT Internal Medicine; ATTEND Internal Medicine
PROC: 02HV33Z Insertion of Infusion Device into Superior Vena Cava, Percutaneous Approach (ICD-10-PCS; principal; 2022-01-20)
PROC: B5181ZA Fluoroscopy of Superior Vena Cava using Low Osmolar Contrast, Guidance (ICD-10-PCS; 2022-01-20)
PROC: B548ZZA Ultrasonography of Superior Vena Cava, Guidance (ICD-10-PCS; 2022-01-20)
PROC: 4A12XM4 Monitoring of Cardiac Stress, External Approach (ICD-10-PCS; 2022-01-20)
PROC: 3E033HZ Introduction of Radioactive Substance into Peripheral Vein, Percutaneous Approach (ICD-10-PCS; 2022-01-20)
DX: I16.0 Hypertensive urgency (principal); G93.41 Metabolic encephalopathy; E44.1 Mild protein-calorie malnutrition; N17.9 Acute kidney failure, unspecified; I48.92 Unspecified atrial flutter; I12.9 Hypertensive chronic kidney disease with stage 1 through stage 4 chronic kidney disease, or unspecified chronic kidney disease; E78.00 Pure hypercholesterolemia, unspecified; E78.5 Hyperlipidemia, unspecified; E11.22 Type 2 diabetes mellitus with diabetic chronic kidney disease; N18.9 Chronic kidney disease, unspecified; F12.90 Cannabis use, unspecified, uncomplicated; R79.89 Other specified abnormal findings of blood chemistry; Z20.822 Contact with and (suspected) exposure to COVID-19; Z86.73 Personal history of transient ischemic attack (TIA), and cerebral infarction without residual deficits; Z82.49 Family history of ischemic heart disease and other diseases of the circulatory system; Z68.24 Body mass index [BMI] 24.0-24.9, adult
CPT/HCPCS: 36415; 36573; 70551; 71045; 78452; 80053; 80061; 80305; 80320; 82962; 83036; 83880; 84484; 85025; 87426; 93005; 93017; 93306; 93970; 99291; A9500; C1725; C1893; J0360; J1650; J2270; J2785; J3490; G0480

== ENCOUNTER 2022-06-02 18:26 | Emergency (ER) | payer OTHER, MEDICAID ==
[~2022-06-02] VITALS: Ht 165.1 cm; Wt 57.0 kg
[2022-06-02 19:41] LABS: BASOPHILS % 0.6 % (0.0-2.0); EOSINOPHILS % 0.9 % (0.0-5.0); HEMATOCRIT. 37.1 % (36.0-48.0); HEMOGLOBIN. 12.1 g/dL (12.0-16.0); LYMPHOCYTES % 7.3 % (20.0-50.0); MEAN CORPUSCULAR HEMOGLOBIN 27.2 pg (28.0-32.0); MEAN CORPUSCULAR VOLUME 83.7 fL (81.0-99.0); MEAN PLATELET VOLUME 10.3 fl (7.4-10.4); MONOCYTES % 10.4 % (2.0-8.0); NEUTROPHILS % 80.8 % (40.0-76.0); PLATELET 231 x1000/uL (130-400); RED BLOOD CELL COUNT 4.43 mill/uL (4.2-5.4); RED CELL DISTRIBUTION WIDTH 18.8 % (11.6-14.6)
[2022-06-02 20:28] LABS: CHLORIDE 104 mEq/L (98-107)
[2022-06-02] MEDS ORDERED: KETOROLAC 60MG/2ML VIAL IM ONE (20:30)
[2022-06-02] MEDS ORDERED: ACETAMINOPHEN 325MG TABLET PO ONE (22:00)
[2022-06-02] MEDS ORDERED: ACET-2708 MT (22:04)
[2022-06-02 22:15] VITALS: BP 125/75
[2022-06-02 22:31] LABS: CLARITY URINE CLEAR (CLEAR); COLOR URINE YELLOW (YELLOW); KETONES URINE NEGATIVE (NEGATIVE); LEUKOCYTE ESTERASE URINE NEGATIVE (NEGATIVE); NITRITE URINE NEGATIVE (NEGATIVE); OCCULT BLOOD URINE TRACE (NEGATIVE); PH URINE 7.5 (4.5-8.0); PROTEIN URINE 4+ (NEGATIVE); SPECIFIC GRAVITY URINE 1.019 (1.005-1.030); UROBILINOGEN URINE 0.2 E.U./dL (0.2-1.0)
== END 2022-06-02 22:16 | disposition home or self-care (01) ==
LOC: ER 18:41
DX: R51.9 Headache, unspecified (principal); F12.10 Cannabis abuse, uncomplicated; I25.2 Old myocardial infarction; I10 Essential (primary) hypertension; E11.9 Type 2 diabetes mellitus without complications; Z79.899 Other long term (current) drug therapy; Z20.822 Contact with and (suspected) exposure to COVID-19
CPT/HCPCS: 36415; 70450; 71045; 80053; 81003; 83880; 84484; 85025; 87426; 87804; 93005; 96372; 99285; C9803; J1885

== ENCOUNTER 2022-06-04 10:14 | Inpatient (IN) | payer OTHER, MEDICAID ==
[~2022-06-04] VITALS: Ht 157.5 cm; Wt 81.6 kg
[~2022-06-04 10:14] MED LIST changes: +ACET-2708 MT
[2022-06-04] MEDS ORDERED: SODIUM CHLORIDE 0.9% 500 ML IV ONE (10:30)
[2022-06-04] MEDS ORDERED: ONDANSETRON HCL 4MG/2ML INJ IV ONE (10:30)
[2022-06-04] MEDS ORDERED: MORPHINE SULFATE 4 MG/ML CPJ (NOT FOR IM USE) IV ONE (10:30)
[2022-06-04 12:01] LABS: HEMATOCRIT. 33.9 % (36.0-48.0); HEMOGLOBIN. 10.8 g/dL (12.0-16.0); MEAN CORPUSCULAR HEMOGLOBIN 27.1 pg (28.0-32.0); MEAN CORPUSCULAR VOLUME 84.8 fL (81.0-99.0); MEAN PLATELET VOLUME 11.3 fl (7.4-10.4); PLATELET 279 x1000/uL (130-400); RED CELL DISTRIBUTION WIDTH 18.8 % (11.6-14.6)
[2022-06-04 12:15] LABS: PARTIAL THROMBOPLASTIN TIME 28.7 sec (23.4-31.0); PROTHROMBIN TIME 11.1 sec (9.6-11.0)
[2022-06-04 13:09] LABS: PLATELET ESTIMATE NORMAL
[2022-06-04] MEDS ORDERED: PANTOPRAZOLE SODIUM 40 MG/VIAL IV ONE (13:15)
[2022-06-04] MEDS ORDERED: MAGNESIUM/ALUMINUM HYDROXIDE/SIMETHICONE 30ML UDC PO ONE (13:15)
[2022-06-04 13:43] LABS: CHLORIDE 100 mEq/L (98-107)
[2022-06-04] MEDS ORDERED: MAGNESIUM/ALUMINUM HYDROXIDE/SIMETHICONE 30ML UDC PO NR (13:45)
[2022-06-04 13:54] LABS: ETHANOL BLOOD < 10 mg/dL
[2022-06-04] MEDS ORDERED: NALOXONE HCL 0.4MG/ML VIAL IV PRN (14:45)
[2022-06-04] MEDS ORDERED: MORPHINE SULFATE 4 MG/ML CPJ (NOT FOR IM USE) IV NR (14:45)
[2022-06-04 15:00] LABS: BETA HYDROXYBUTYRATE 0.1 mMol/L (0.0-0.3)
[2022-06-04] MEDS ORDERED: CLONIDINE 0.2MG TABLET PO ONE (16:15)
[2022-06-04] MEDS ORDERED: HYDRALAZINE 20MG/ML VIAL IV ONE (16:15)
[2022-06-04] MEDS ORDERED: AMLODIPINE 10MG TABLET PO ONE (16:15)
[2022-06-04] MEDS ORDERED: FUROSEMIDE 40MG/4ML VIAL IVP NR (16:30)
[2022-06-04] MEDS ORDERED: DIGOXIN 500MCG/2ML AMP IV ONE ×3 (17:00→18:00)
[2022-06-04 19:15] LABS: *AMPHETAMINES SCREEN URINE NEGATIVE (NEGATIVE); *BARBITURATES SCREEN URINE NEGATIVE (NEGATIVE); *BENZODIAZEPINES SCREEN URINE NEGATIVE (NEGATIVE); *COCAINE SCREEN URINE NEGATIVE (NEGATIVE); CANNABINOID URINE SCREEN PRESUMTIVE POSITIVE (NEGATIVE); METHADONE URINE SCREEN NEGATIVE (NEGATIVE); OPIATES URINE SCREEN PRESUMTIVE POSITIVE (NEGATIVE); PHENCYCLIDINE URINE SCREEN NEGATIVE (NEGATIVE)
[2022-06-04] MEDS ORDERED: DILTIAZEM HCL 5MG/ML 5ML VIAL IV NR (19:30)
[2022-06-04 20:16] LABS: BG BASE EXCESS -2.8 mmol/L (-2.0-2.0); BG CARBOXYHEMOGLOBIN 0.4 % (0.5-1.5); BG DEOXYHEMOGLOBIN 5.6 % (0.0-5.0); BG FRACTION INSPIRED OXYGEN 21; BG HCO3 ACT 21.4 mmol/L (22.0-26.0); BG METHEMOGLOBIN 0.2 % (0.0-1.5); BG OXYGEN SATURATION 94.4 % (92.0-98.5); BG OXYHEMOGLOBIN 93.8 % (94.0-97.0); BG PCO2 34.8 mmHg (35.0-45.0); BG PH 7.406 (7.350-7.450); BG PO2 73.1 mmHg (75.0-100.0); BG SAMPLE SITE RIGHT RADIAL; BG TOTAL HEMOGLOBIN 10.6 g/dL (12.0-18.0); BG VENT MODE ROOM AIR
[2022-06-05 12:10] VITALS: BP 151/78
[2022-06-05] MEDS ORDERED: ONDANSETRON HCL 4MG/2ML INJ IV PRN (15:15)
[2022-06-05] MEDS ORDERED: IPRATROPIUM/ALBUTEROL 0.5-3(2.5)MG/3ML NEB HHN PRN (15:15)
[2022-06-05] MEDS ORDERED: ALBUTEROL (0.083%) 2.5MG/3ML NEB HHN PRN (15:30)
[2022-06-05] MEDS ORDERED: IPRATROPIUM BROMIDE (0.02%) 0.5MG/2.5ML NEB HHN PRN (15:30)
[2022-06-05] MEDS ORDERED: ACETAMINOPHEN 325MG TABLET PO PRN (15:45)
[2022-06-05] MEDS: DILTIAZEM HCL 30MG TABLET PO SCH ×2 (15:48→20:42)
[2022-06-05 16:00] VITALS: BP 163/99
[2022-06-05] MEDS ORDERED: LEVOFLOXACIN 750MG PREMIX 150 ML IV NR (17:00)
[2022-06-05] MEDS ORDERED: AMLO10TA80 MT (17:03)
[2022-06-05 17:33] LABS: CHLORIDE 108 mEq/L (98-107)
[2022-06-05] MEDS ORDERED: VANCOMYCIN 1,750 MG in DEXT 5% WATER 250 ML IV NR (18:00)
[2022-06-05] MEDS: PANTOPRAZOLE SODIUM 40 MG/VIAL IV SCH (18:17)
[2022-06-05 20:00] VITALS: BP 155/70
[2022-06-06] VITALS: BP 120/48
[2022-06-06 00:05] LABS: BASOPHILS % 0.5 % (0.0-2.0); EOSINOPHILS % 1.6 % (0.0-5.0); HEMATOCRIT. 30.8 % (36.0-48.0); HEMOGLOBIN. 9.7 g/dL (12.0-16.0); LYMPHOCYTES % 12.5 % (20.0-50.0); MEAN CORPUSCULAR HEMOGLOBIN 27.4 pg (28.0-32.0); MEAN CORPUSCULAR VOLUME 87.1 fL (81.0-99.0); MEAN PLATELET VOLUME 10.9 fl (7.4-10.4); MONOCYTES % 14.1 % (2.0-8.0); NEUTROPHILS % 71.3 % (40.0-76.0); PLATELET 213 x1000/uL (130-400); RED BLOOD CELL COUNT 3.53 mill/uL (4.2-5.4); RED CELL DISTRIBUTION WIDTH 18.5 % (11.6-14.6)
[2022-06-06 00:07] LABS: CREATINE KINASE MB FRACTION 2.3 ng/mL (0.5-3.6)
[2022-06-06 04:00] VITALS: BP 169/73
[2022-06-06] MEDS: DILTIAZEM HCL 30MG TABLET PO SCH ×3 (04:54→21:21)
[2022-06-06 08:00] VITALS: BP 123/103
[2022-06-06] MEDS: PANTOPRAZOLE SODIUM 40 MG/VIAL IV SCH (09:00)
[2022-06-06] MEDS: HYDRALAZINE HCL 100MG TABLET PO SCH (09:32)
[2022-06-06] MEDS: AMLODIPINE 10MG TABLET PO SCH (09:32)
[2022-06-06 09:42] LABS: CREATINE KINASE MB FRACTION 1.5 ng/mL (0.5-3.6)
[2022-06-06] MEDS ORDERED: HYDROCODONE/ACETAMINOPHEN 5/325MG TABLET PO PRN (11:00)
[2022-06-06] MEDS: SUCRALFATE 1 G/10 ML UDC PO SCH ×3 (11:13→21:20)
[2022-06-06 11:26] LABS: BASOPHILS % 0.7 % (0.0-2.0); EOSINOPHILS % 2.1 % (0.0-5.0); HEMATOCRIT. 26.3 % (36.0-48.0); HEMOGLOBIN. 8.5 g/dL (12.0-16.0); LYMPHOCYTES % 14.1 % (20.0-50.0); MEAN CORPUSCULAR HEMOGLOBIN 27.5 pg (28.0-32.0); MEAN CORPUSCULAR VOLUME 85.7 fL (81.0-99.0); MEAN PLATELET VOLUME 11.5 fl (7.4-10.4); MONOCYTES % 8.6 % (2.0-8.0); NEUTROPHILS % 74.5 % (40.0-76.0); PLATELET 213 x1000/uL (130-400); RED BLOOD CELL COUNT 3.07 mill/uL (4.2-5.4); RED CELL DISTRIBUTION WIDTH 18.1 % (11.6-14.6)
[2022-06-06 11:31] LABS: CHLORIDE 108 mEq/L (98-107)
[2022-06-06 11:39] LABS: TOTAL IRON BINDING CAPACITY 285 ug/dL (250-450)
[2022-06-06 12:00] VITALS: BP 138/66
[2022-06-06 12:02] LABS: FOLIC ACID (FOLATE) SERUM 11.9 ng/mL (>5.38)
[2022-06-06] MEDS: IRON SUCROSE COMPLEX 100 MG/5 ML ML IV SCH (14:00)
[2022-06-06] MEDS ORDERED: NALOXONE HCL 0.4MG/ML VIAL IV PRN (14:00)
[2022-06-06] MEDS: CYANOCOBALAMIN 1000MCG/ML VIAL IM SCH (14:53)
[2022-06-06] MEDS: ENOXAPARIN 80MG/0.8ML SYR SUBCUT SCH (15:05)
[2022-06-06 16:00] VITALS: BP 158/70
[2022-06-06 20:00] VITALS: BP 145/67
[2022-06-07] VITALS (8 sets, daily range): BP systolic 112–188; BP diastolic 63–94
[2022-06-07] MEDS: DILTIAZEM HCL 30MG TABLET PO SCH ×2 (05:53→13:04)
[2022-06-07] MEDS: HYDROCODONE/ACETAMINOPHEN 5/325MG TABLET PO PRN ×2 (05:54→10:35)
[2022-06-07] MEDS: SUCRALFATE 1 G/10 ML UDC PO SCH ×4 (06:04→20:15)
[2022-06-07] MEDS: CYANOCOBALAMIN 1000MCG/ML VIAL IM SCH (08:27)
[2022-06-07] MEDS: HYDRALAZINE HCL 100MG TABLET PO SCH (08:27)
[2022-06-07] MEDS: AMLODIPINE 10MG TABLET PO SCH (08:27)
[2022-06-07] MEDS: PANTOPRAZOLE SODIUM 40 MG/VIAL IV SCH (08:27)
[2022-06-07] MEDS ORDERED: BISACODYL 5MG TABLET PO SCH (09:00)
[2022-06-07] MEDS ORDERED: SORBITOL 70% SOLN 30ML PO SCH (09:00)
[2022-06-07 10:07] LABS: BASOPHILS % 0.9 % (0.0-2.0); HEMATOCRIT. 25.8 % (36.0-48.0); HEMOGLOBIN. 8.8 g/dL (12.0-16.0); LYMPHOCYTES % 15.4 % (20.0-50.0); MEAN CORPUSCULAR HEMOGLOBIN 28.6 pg (28.0-32.0); MEAN CORPUSCULAR VOLUME 83.8 fL (81.0-99.0); MEAN PLATELET VOLUME 11.7 fl (7.4-10.4); NEUTROPHILS % 71.7 % (40.0-76.0); PLATELET 230 x1000/uL (130-400); RED BLOOD CELL COUNT 3.08 mill/uL (4.2-5.4); RED CELL DISTRIBUTION WIDTH 17.6 % (11.6-14.6)
[2022-06-07] MEDS ORDERED: LEVOFLOXACIN 500MG PREMIX 100 ML IV SCH (11:00)
[2022-06-07] MEDS ORDERED: LEVOFLOXACIN 500MG TABLET PO SCH (11:00)
[2022-06-07 12:25] LABS: CLARITY URINE CLOUDY (CLEAR); COLOR URINE YELLOW (YELLOW); KETONES URINE NEGATIVE (NEGATIVE); LEUKOCYTE ESTERASE URINE TRACE (NEGATIVE); NITRITE URINE NEGATIVE (NEGATIVE); OCCULT BLOOD URINE NEGATIVE (NEGATIVE); PROTEIN URINE 3+ (NEGATIVE); SPECIFIC GRAVITY URINE 1.018 (1.005-1.030); UROBILINOGEN URINE 0.2 E.U./dL (0.2-1.0)
[2022-06-07] MEDS ORDERED: VANCOMYCIN 1G PREMIX 200 ML IV SCH (13:00)
[2022-06-07] MEDS: IRON SUCROSE COMPLEX 100 MG/5 ML ML IV SCH (13:03)
[2022-06-07] MEDS ORDERED: LEVO250T74 MT (13:09)
[2022-06-07] MEDS ORDERED: APIX5TAB MT (13:11)
[2022-06-07] MEDS ORDERED: DILT180C66 MT (13:11)
[2022-06-07] MEDS: ENOXAPARIN 80MG/0.8ML SYR SUBCUT SCH (17:17)
[2022-06-07] MEDS: DILTIAZEM HCL 60MG TABLET PO SCH ×2 (17:17→20:16)
[2022-06-07] MEDS ORDERED: DILTIAZEM HCL 60MG TABLET PO SCH (22:00)
[2022-06-09 13:11] LABS: ATYPICAL pANCA <1:20 titer (Neg:<1:20); SACCHAROMYCES CEREVISIAE IGG <20.0 Units (0.0-24.9); SACCHAROMYCES CEREVISIAE IGM 26.2 Units (0.0-24.9)
== END 2022-06-07 22:03 | disposition home or self-care (01) | DRG 871 ==
LOC: ER 10:14 → MICUSO 18:02 → EDBEDREQ 18:10 → EDBEDREQSVC 18:10 → EDBEDREQTM 18:10 → EDBEDREQ 18:11 → 7EST 06-05 12:10
PROVIDERS: ADMIT Internal Medicine; ATTEND Internal Medicine
DX: A41.89 Other specified sepsis (principal); I50.43 Acute on chronic combined systolic (congestive) and diastolic (congestive) heart failure; U07.1 COVID-19; I31.39 Other pericardial effusion (noninflammatory); I13.0 Hypertensive heart and chronic kidney disease with heart failure and stage 1 through stage 4 chronic kidney disease, or unspecified chronic kidney disease; E87.1 Hypo-osmolality and hyponatremia; I48.92 Unspecified atrial flutter; N20.0 Calculus of kidney; K40.90 Unilateral inguinal hernia, without obstruction or gangrene, not specified as recurrent; I16.0 Hypertensive urgency; E78.00 Pure hypercholesterolemia, unspecified; I48.91 Unspecified atrial fibrillation; F41.9 Anxiety disorder, unspecified; K21.9 Gastro-esophageal reflux disease without esophagitis; R04.0 Epistaxis; I25.2 Old myocardial infarction; E11.22 Type 2 diabetes mellitus with diabetic chronic kidney disease; N18.9 Chronic kidney disease, unspecified; K29.90 Gastroduodenitis, unspecified, without bleeding; F12.90 Cannabis use, unspecified, uncomplicated; D63.1 Anemia in chronic kidney disease; I25.10 Atherosclerotic heart disease of native coronary artery without angina pectoris; Z86.73 Personal history of transient ischemic attack (TIA), and cerebral infarction without residual deficits; Z87.891 Personal history of nicotine dependence; Z90.49 Acquired absence of other specified parts of digestive tract; Z82.49 Family history of ischemic heart disease and other diseases of the circulatory system
CPT/HCPCS: 36415; 36600; 71045; 74176; 76770; 80048; 80053; 80162; 80202; 80305; 80320; 81003; 82010; 82270; 82375; 82550; 82553; 82607; 82728; 82746; 82805; 82962; 83540; 83550; 83880; 84484; 85025; 85044; 86256; 86671; 86850; 86900; 87015; 87045; 87070; 87177; 87209; 87426; 87427; 87449; 89055; 93005; 94660; 99285; C1893; C9113; C9803; J0360; J1160; J1650; J1940; J1956; J2270; J2405; J3370; J3420; J3490; J7040; J7060; G0480

== ENCOUNTER 2022-08-25 09:44 | Inpatient (IN) | payer OTHER, MEDICAID ==
[~2022-08-25] VITALS: Ht 160 cm; Wt 58.2 kg
[~2022-08-25 09:44] MED LIST changes: +APIX5TAB MT; +DILT180C66 MT; +LEVO250T74 MT
[2022-08-25 10:32] LABS: HEMATOCRIT. 32.6 % (36.0-48.0); HEMOGLOBIN. 10.6 g/dL (12.0-16.0); MEAN CORPUSCULAR HEMOGLOBIN 27.5 pg (28.0-32.0); MEAN CORPUSCULAR VOLUME 84.7 fL (81.0-99.0); MEAN PLATELET VOLUME 11.6 fl (7.4-10.4); PLATELET 222 x1000/uL (130-400); RED BLOOD CELL COUNT 3.85 mill/uL (4.2-5.4); RED CELL DISTRIBUTION WIDTH 15.1 % (11.6-14.6)
[2022-08-25 10:55] LABS: CHLORIDE 109 mEq/L (98-107)
[2022-08-25] MEDS ORDERED: ONDANSETRON HCL 4MG/2ML INJ IV STA (11:00)
[2022-08-25] MEDS ORDERED: MORPHINE SULFATE 4 MG/ML CPJ (NOT FOR IM USE) IV STA (11:00)
[2022-08-25] MEDS ORDERED: HYDRALAZINE 20MG/ML VIAL IV ONE (13:00)
[2022-08-25] MEDS ORDERED: FUROSEMIDE 40MG/4ML VIAL IVP ONE (13:45)
[2022-08-25] MEDS ORDERED: LABETALOL 5MG/ML SYR 20 MG/4 ML SYRINGE IV PRN (15:30)
[2022-08-25] MEDS ORDERED: NICARDIPINE 50 MG in SODIUM CHLORIDE 0.9% 230 ML IV PRN ×2 (18:30→19:00)
[2022-08-25 18:35] LABS: PLATELET ESTIMATE NORMAL
[2022-08-25] MEDS ORDERED: HYDRALAZINE 20MG/ML VIAL IV NR (20:00)
[2022-08-25] MEDS ORDERED: HYDRALAZINE 20MG/ML VIAL IV PRN (20:00)
[2022-08-25] MEDS ORDERED: MORPHINE SULFATE 2 MG/ML CPJ (NOT FOR IM USE) IV NR (22:15)
[2022-08-25] MEDS: NICARDIPINE 50 MG in SODIUM CHLORIDE 0.9% 250 ML IV PRN (22:39)
[2022-08-26] VITALS (39 sets, daily range): BP systolic 109–174; BP diastolic 52–98
[2022-08-26] MEDS ORDERED: IPRATROPIUM BROMIDE (0.02%) 0.5MG/2.5ML NEB HHN SCH (02:30)
[2022-08-26] MEDS ORDERED: ALBUTEROL (0.083%) 2.5MG/3ML NEB HHN PRN (02:30)
[2022-08-26] MEDS ORDERED: IPRATROPIUM BROMIDE (0.02%) 0.5MG/2.5ML NEB HHN PRN (02:30)
[2022-08-26] MEDS ORDERED: ALBUTEROL (0.083%) 2.5MG/3ML NEB HHN SCH (02:30)
[2022-08-26] MEDS ORDERED: ONDANSETRON HCL 4MG/2ML INJ IV PRN (02:30)
[2022-08-26] MEDS ORDERED: NALOXONE HCL 0.4MG/ML VIAL IV PRN (02:45)
[2022-08-26] MEDS: HYDROCODONE/ACETAMINOPHEN 5/325MG TABLET PO PRN ×2 (02:51→21:31)
[2022-08-26] MEDS ORDERED: IPRATROPIUM/ALBUTEROL 0.5-3(2.5)MG/3ML NEB HHN PRN (03:00)
[2022-08-26] MEDS: IPRATROPIUM/ALBUTEROL 0.5-3(2.5)MG/3ML NEB HHN SCH ×5 (04:00→21:02)
[2022-08-26] MEDS: NICARDIPINE 50 MG in SODIUM CHLORIDE 0.9% 250 ML IV PRN (05:39)
[2022-08-26 05:58] LABS: BASOPHILS % 1.2 % (0.0-2.0); HEMATOCRIT. 30.5 % (36.0-48.0); HEMOGLOBIN. 10.1 g/dL (12.0-16.0); LYMPHOCYTES % 9.5 % (20.0-50.0); MEAN CORPUSCULAR HEMOGLOBIN 27.4 pg (28.0-32.0); MEAN CORPUSCULAR VOLUME 82.5 fL (81.0-99.0); MEAN PLATELET VOLUME 11.6 fl (7.4-10.4); MONOCYTES % 9.5 % (2.0-8.0); NEUTROPHILS % 77.8 % (40.0-76.0); PLATELET 208 x1000/uL (130-400); RED BLOOD CELL COUNT 3.69 mill/uL (4.2-5.4); RED CELL DISTRIBUTION WIDTH 14.7 % (11.6-14.6)
[2022-08-26] MEDS: CLONIDINE 0.2MG TABLET PO SCH ×3 (06:18→17:00)
[2022-08-26 08:12] LABS: HEPATITIS B SURFACE ANTIGEN NEGATIVE
[2022-08-26] MEDS: AMLODIPINE 10MG TABLET PO SCH (09:41)
[2022-08-26] MEDS: PANTOPRAZOLE SODIUM 40 MG/VIAL IV SCH (09:41)
[2022-08-26] MEDS ORDERED: HYDRALAZINE HCL 50MG TABLET PO SCH (14:00)
[2022-08-26] MEDS: HYDRALAZINE HCL 100MG TABLET PO SCH (17:00)
[2022-08-26] MEDS: APIXABAN 5 MG TABLET PO SCH (17:00)
[2022-08-26] MEDS ORDERED: ATORVASTATIN CALCIUM 20MG TABLET PO SCH (21:00)
[2022-08-26] MEDS: ATORVASTATIN CALCIUM 20MG TABLET PO SCH (21:31)
[2022-08-27] VITALS (28 sets, daily range): BP systolic 119–173; BP diastolic 55–128
[2022-08-27] MEDS: IPRATROPIUM/ALBUTEROL 0.5-3(2.5)MG/3ML NEB HHN SCH ×6 (00:59→20:24)
[2022-08-27 06:05] LABS: BASOPHILS % 0.8 % (0.0-2.0); EOSINOPHILS % 5.8 % (0.0-5.0); HEMATOCRIT. 27.9 % (36.0-48.0); HEMOGLOBIN. 9.2 g/dL (12.0-16.0); LYMPHOCYTES % 16.7 % (20.0-50.0); MEAN CORPUSCULAR HEMOGLOBIN 27.2 pg (28.0-32.0); MEAN CORPUSCULAR VOLUME 82.3 fL (81.0-99.0); MEAN PLATELET VOLUME 11.1 fl (7.4-10.4); MONOCYTES % 7.6 % (2.0-8.0); NEUTROPHILS % 69.1 % (40.0-76.0); PLATELET 182 x1000/uL (130-400); RED BLOOD CELL COUNT 3.39 mill/uL (4.2-5.4); RED CELL DISTRIBUTION WIDTH 14.8 % (11.6-14.6)
[2022-08-27 06:30] LABS: DIGOXIN 2.8 ng/mL (0.9-2.0)
[2022-08-27] MEDS: HYDRALAZINE HCL 100MG TABLET PO SCH ×3 (08:25→18:24)
[2022-08-27] MEDS: APIXABAN 5 MG TABLET PO SCH (08:25)
[2022-08-27] MEDS: DILTIAZEM HCL 180MG CAPSULE ER 24HR PO SCH (08:26)
[2022-08-27] MEDS: AMLODIPINE 10MG TABLET PO SCH (08:26)
[2022-08-27] MEDS: MINOXIDIL 2.5MG TABLET PO SCH (08:27)
[2022-08-27] MEDS: LOSARTAN POTASSIUM 100 MG TABLET PO SCH (08:27)
[2022-08-27] MEDS: CLONIDINE 0.2MG TABLET PO SCH ×2 (08:27→18:25)
[2022-08-27] MEDS: PANTOPRAZOLE SODIUM 40 MG/VIAL IV SCH (08:28)
[2022-08-27] MEDS: HYDROCODONE/ACETAMINOPHEN 5/325MG TABLET PO PRN ×2 (13:33→23:09)
[2022-08-27] MEDS ORDERED: DIGOXIN 250MCG TABLET PO SCH (18:00)
[2022-08-27] MEDS: APIXABAN 2.5 MG TABLET PO SCH (18:25)
[2022-08-27] MEDS: ATORVASTATIN CALCIUM 20MG TABLET PO SCH (21:00)
[2022-08-28] VITALS (24 sets, daily range): BP systolic 98–155; BP diastolic 48–82
[2022-08-28 06:42] LABS: BASOPHILS % 1.1 % (0.0-2.0); RED BLOOD CELL COUNT 3.28 mill/uL (4.2-5.4)
[2022-08-28 06:44] LABS: EOSINOPHILS % 8.4 % (0.0-5.0); HEMATOCRIT. 27.2 % (36.0-48.0); HEMOGLOBIN. 8.9 g/dL (12.0-16.0); LYMPHOCYTES % 17.9 % (20.0-50.0); MEAN CORPUSCULAR VOLUME 82.8 fL (81.0-99.0); MEAN PLATELET VOLUME 11.1 fl (7.4-10.4); MONOCYTES % 9.5 % (2.0-8.0); NEUTROPHILS % 63.1 % (40.0-76.0); PLATELET 194 x1000/uL (130-400)
[2022-08-28] MEDS: PANTOPRAZOLE SODIUM 40 MG/VIAL IV SCH (08:11)
[2022-08-28] MEDS: HYDRALAZINE HCL 100MG TABLET PO SCH ×2 (08:12→12:31)
[2022-08-28] MEDS: DILTIAZEM HCL 180MG CAPSULE ER 24HR PO SCH (08:12)
[2022-08-28] MEDS: APIXABAN 2.5 MG TABLET PO SCH (08:12)
[2022-08-28] MEDS: MINOXIDIL 2.5MG TABLET PO SCH (08:12)
[2022-08-28] MEDS: LOSARTAN POTASSIUM 100 MG TABLET PO SCH (08:12)
[2022-08-28] MEDS: AMLODIPINE 10MG TABLET PO SCH (08:12)
[2022-08-28] MEDS: CLONIDINE 0.2MG TABLET PO SCH (08:13)
[2022-08-28] MEDS: IPRATROPIUM/ALBUTEROL 0.5-3(2.5)MG/3ML NEB HHN SCH ×3 (08:31→15:58)
[2022-08-28] MEDS ORDERED: ATORVASTATIN CALCIUM 20MG TABLET PO SCH (21:00)
== END 2022-08-28 17:30 | disposition home or self-care (01) | DRG 305 ==
LOC: ER 09:44 → MICUSO 17:34 → EDBEDREQ 17:39 → EDBEDREQSVC 18:29 → EDBEDREQTM 18:29 → CVICU 08-26 01:40
PROVIDERS: ADMIT Internal Medicine; ATTEND Internal Medicine
PROC: 02HV33Z Insertion of Infusion Device into Superior Vena Cava, Percutaneous Approach (ICD-10-PCS; principal; 2022-08-26)
PROC: B548ZZA Ultrasonography of Superior Vena Cava, Guidance (ICD-10-PCS; 2022-08-26)
DX: I16.1 Hypertensive emergency (principal); I50.32 Chronic diastolic (congestive) heart failure; J45.901 Unspecified asthma with (acute) exacerbation; I48.0 Paroxysmal atrial fibrillation; F12.10 Cannabis abuse, uncomplicated; E78.00 Pure hypercholesterolemia, unspecified; N18.9 Chronic kidney disease, unspecified; E11.22 Type 2 diabetes mellitus with diabetic chronic kidney disease; R10.9 Unspecified abdominal pain; I13.0 Hypertensive heart and chronic kidney disease with heart failure and stage 1 through stage 4 chronic kidney disease, or unspecified chronic kidney disease; Z86.73 Personal history of transient ischemic attack (TIA), and cerebral infarction without residual deficits; Z90.49 Acquired absence of other specified parts of digestive tract; Z82.49 Family history of ischemic heart disease and other diseases of the circulatory system
CPT/HCPCS: 36415; 36573; 71045; 74176; 80048; 80053; 80061; 80162; 83735; 84484; 85025; 86803; 87340; 87426; 93005; 93306; 94640; 99285; C1725; C1893; C9113; C9803; J0360; J1940; J2270; J2405; J3490; J7050

== ENCOUNTER 2023-12-30 20:21 | Inpatient (IN) | payer MEDICARE, MEDICAID ==
[~2023-12-30] VITALS: Ht 165.1 cm; Wt 58.1 kg
[~2023-12-30 20:21] MED LIST changes: +CITR473S PO; -CLON0.2T PO; -CYCL10TA21 MT; -DEXL60CA3 PO; -DIGO250T79 PO; +FURO-151 MT; -HYDR100T26 PO; -LEVO250T74 MT; +LIP40 PO; -LOSA100T32 PO; +METO100T16 MT; +OMEP40CA20 MT; +SUCR1TAB MT; -UMEC1DIS INH
[2023-12-30] MEDS ORDERED: MECLIZINE 25MG TABLET PO ONE (20:45)
[2023-12-30] MEDS: ONDANSETRON HCL 4MG/2ML INJ IV ONE (21:00)
[2023-12-30 21:01] LABS: BASOPHILS % 1.9 % (0.0-2.0); HEMATOCRIT. 22.7 % (36.0-48.0); HEMOGLOBIN. 7.5 g/dL (12.0-16.0); LYMPHOCYTES % 13.7 % (20.0-50.0); MEAN CORPUSCULAR HEMOGLOBIN 27.9 pg (28.0-32.0); MEAN CORPUSCULAR HGB CONC 32.9 g/dL (31.0-37.0); MEAN CORPUSCULAR VOLUME 84.8 fL (81.0-99.0); MEAN PLATELET VOLUME 8.1 fl (7.4-10.4); MONOCYTES % 5.4 % (2.0-8.0); PLATELET 188 x1000/uL (130-400); RED BLOOD CELL COUNT 2.68 mill/uL (4.2-5.4); WHITE BLOOD COUNT 6.7 x1000/uL (4.5-11.0)
[2023-12-30] MEDS: MECLIZINE 12.5MG TABLET PO NR (21:01)
[2023-12-30 21:08] LABS: CHLORIDE 111 mEq/L (98-107); POTASSIUM 4.9 mEq/L (3.5-5.1); SODIUM 137 mEq/L (136-145)
[2023-12-30 21:09] LABS: CALCIUM 9.3 mg/dL (8.7-10.4); CARBON DIOXIDE 14 mEq/L (21-32)
[2023-12-30 21:14] LABS: GLUCOSE 79 mg/dL (70-105); UREA NITROGEN BLOOD 77 mg/dL (9-23)
[2023-12-30 21:16] LABS: ALANINE AMINOTRANSFERASE 18 IU/L (10-49); ALBUMIN 4.3 g/dL (3.2-4.8); ASPARTATE AMINOTRANSFERASE 20 IU/L (<34); BILIRUBIN DIRECT 0.2 mg/dL (<=3.0); BILIRUBIN TOTAL 0.5 mg/dL (0.1-1.0); PROTEIN TOTAL 7.1 g/dL (6.0-8.3)
[2023-12-30 21:18] LABS: TROPONIN I HIGH SENSITIVITY 73 ng/L (3.0-34)
[2023-12-30 23:29] LABS: TROPONIN I HIGH SENSITIVITY 77 ng/L (3.0-34)
[2023-12-30] MEDS ORDERED: CLONIDINE 0.2MG TABLET PO PRN (23:45)
[2023-12-30] MEDS: CLONIDINE 0.1MG TABLET PO PRN (23:51)
[2023-12-31] VITALS (12 sets, daily range): BP systolic 137–179; BP diastolic 68–87; PULSE 58–77; RESP 11–22; TEMP 36.00288–36.22512; O2SAT 94–100
[2023-12-31] MEDS: FUROSEMIDE 40MG/4ML VIAL IV SCH (01:21)
[2023-12-31] MEDS: AMLODIPINE 10MG TABLET PO SCH (01:30)
[2023-12-31] MEDS ORDERED: MECLIZINE 25MG TABLET PO NR (02:00)
[2023-12-31] MEDS: SODIUM BICARBONATE 650MG TABLET PO SCH (02:02)
[2023-12-31] MEDS: MINOXIDIL 2.5MG TABLET PO SCH (02:02)
[2023-12-31] MEDS ORDERED: NICARDIPINE 50 MG in SODIUM CHLORIDE 0.9% 230 ML IV PRN (02:30)
[2023-12-31] MEDS: NICARDIPINE 40 MG/200 ML PREMIX 200 ML IV PRN (02:39)
[2023-12-31] MEDS: HYDRALAZINE HCL 50MG TABLET PO SCH (06:00)
[2023-12-31] MEDS: AMLODIPINE 5MG TABLET PO SCH (09:42)
[2023-12-31] MEDS ORDERED: IPRATROPIUM/ALBUTEROL 0.5-3(2.5)MG/3ML NEB HHN PRN (11:15)
[2023-12-31] MEDS: SODIUM BICARBONATE 8.4% 50MEQ/50ML SYR IV NR (14:24)
[2023-12-31] MEDS: SODIUM CHLORIDE 0.9% 3ML FLUSH IVF SCH (14:25)
[2023-12-31 17:03] LABS: CLARITY URINE CLEAR (CLEAR); COLOR URINE YELLOW (YELLOW); GLUCOSE URINE NEGATIVE (NEGATIVE); KETONES URINE NEGATIVE (NEGATIVE); LEUKOCYTE ESTERASE URINE NEGATIVE (NEGATIVE); NITRITE URINE NEGATIVE (NEGATIVE); OCCULT BLOOD URINE TRACE (NEGATIVE); PH URINE 5.5 (4.5-8.0); PROTEIN URINE 3+ (NEGATIVE); UROBILINOGEN URINE 0.2 E.U./dL (0.2-1.0)
[2023-12-31 17:06] LABS: BG BASE EXCESS -4.2 mmol/L (-2.0-3.0); BG CARBOXYHEMOGLOBIN 0.8 % (0.5-1.5); BG DEOXYHEMOGLOBIN 7.9 % (0.0-5.0); BG FRACTION INSPIRED OXYGEN 24; BG HCO3 ACT 20.2 mmol/L (21.0-28.0); BG METHEMOGLOBIN 0.3 % (0.5-1.5); BG PCO2 33.8 mmHg (32.0-45.0); BG PH 7.395 (7.350-7.450); BG PO2 66.4 mmHg (83.0-108.0); BG SAMPLE SITE RIGHT RADIAL; BG TOTAL HEMOGLOBIN 7.3 g/dL (12.0-16.0); BG VENT MODE NASAL CANNULA
[2023-12-31] MEDS: HYDRALAZINE 20MG/ML VIAL IV PRN (17:18)
[2023-12-31 17:21] LABS: BACTERIA URINE TRACE; RBC URINE 0-2 /hpf (0-2); SQUAMOUS EPITHELIAL CELL URINE FEW /lpf (RARE/1+); WBC URINE 0-2 /hpf (0-2)
[2023-12-31 18:26] LABS: POTASSIUM 4.2 mEq/L (3.5-5.1)
[2023-12-31 18:28] LABS: CALCIUM 8.9 mg/dL (8.7-10.4)
[2023-12-31 18:37] LABS: CREATININE 5.8 mg/dL (0.6-1.0)
[2023-12-31 18:51] LABS: HEPATITIS B SURFACE ANTIGEN NEGATIVE (Negative)
[2023-12-31 19:12] LABS: HEPATITIS C AB NON REACTIVE (Neg) (Negative)
[2023-12-31] MEDS: EPOETIN ALFA-EPBX 4,000 UNIT/ML VIAL SUBCUT NR (21:50)
[2023-12-31] MEDS ORDERED: DEXL60CA3 PO (23:34)
[2023-12-31] MEDS ORDERED: APIX2.5T PO (23:34)
[2023-12-31] MEDS ORDERED: AMLO10TA80 PO (23:34)
[2023-12-31] MEDS ORDERED: BUME1TAB9 PO (23:34)
[2023-12-31] MEDS ORDERED: CLON0.2T PO (23:34)
[2023-12-31] MEDS ORDERED: HYDR25TA78 PO (23:34)
[2023-12-31] MEDS ORDERED: CYCL10TA21 PO (23:34)
[2024-01-01] VITALS (12 sets, daily range): BP systolic 142–170; BP diastolic 66–96; PULSE 73–84; RESP 12–22; TEMP 36.00288–36.28068; O2SAT 93–98
[2024-01-01 00:35] LABS: TROPONIN I HIGH SENSITIVITY 88 ng/L (3.0-34)
[2024-01-01] MEDS: TRAMADOL 50MG TABLET PO PRN (05:07)
[2024-01-01] MEDS: MINOXIDIL 2.5MG TABLET PO SCH (10:10)
[2024-01-01 13:18] LABS: CHLORIDE 107 mEq/L (98-107); POTASSIUM 4.7 mEq/L (3.5-5.1); SODIUM 137 mEq/L (136-145)
[2024-01-01 13:19] LABS: CALCIUM 8.5 mg/dL (8.7-10.4); CARBON DIOXIDE 19 mEq/L (21-32)
[2024-01-01 13:23] LABS: HEMATOCRIT. 24.9 % (36.0-48.0); HEMOGLOBIN. 7.9 g/dL (12.0-16.0); MEAN CORPUSCULAR HEMOGLOBIN 27.9 pg (28.0-32.0); MEAN CORPUSCULAR HGB CONC 31.7 g/dL (31.0-37.0); MEAN CORPUSCULAR VOLUME 88.2 fL (81.0-99.0); MEAN PLATELET VOLUME 9.3 fl (7.4-10.4); PLATELET 55 x1000/uL (130-400); RED BLOOD CELL COUNT 2.82 mill/uL (4.2-5.4); WHITE BLOOD COUNT 8.5 x1000/uL (4.5-11.0)
[2024-01-01 13:24] LABS: DIFFERENTIAL COMMENT 1; GLUCOSE 123 mg/dL (70-105)
[2024-01-01 13:25] LABS: UREA NITROGEN BLOOD 73 mg/dL (9-23)
[2024-01-01 13:26] LABS: ALANINE AMINOTRANSFERASE 16 IU/L (10-49); ALBUMIN 3.7 g/dL (3.2-4.8); ASPARTATE AMINOTRANSFERASE 20 IU/L (<34)
[2024-01-01 13:27] LABS: BILIRUBIN TOTAL 0.2 mg/dL (0.1-1.0); PHOSPHORUS 6.1 mg/dL (2.5-4.9); PROTEIN TOTAL 5.9 g/dL (6.0-8.3)
[2024-01-01 13:33] LABS: CREATININE 5.5 mg/dL (0.6-1.0)
[2024-01-01 13:36] LABS: BILIRUBIN DIRECT < 0.1 mg/dL (<=3.0)
[2024-01-01] MEDS ORDERED: NALOXONE HCL 0.4MG/ML VIAL IV PRN (14:45)
[2024-01-02] VITALS (12 sets, daily range): BP systolic 149–185; BP diastolic 58–83; PULSE 75–90; RESP 12–24; TEMP 34.725–36.50292; O2SAT 91–99
[2024-01-02 02:46] LABS: PLATELET ESTIMATE DECREASED
[2024-01-02] MEDS: FUROSEMIDE 40MG/4ML VIAL IV SCH (20:54)
[2024-01-02] MEDS: ACETAMINOPHEN 325MG TABLET PO PRN (21:16)
[2024-01-03] VITALS (12 sets, daily range): BP systolic 131–172; BP diastolic 58–82; PULSE 79–95; RESP 11–16; TEMP 36.3918–37.00296; O2SAT 93–99
[2024-01-03 07:28] LABS: CALCIUM 9.8 mg/dL (8.7-10.4); POTASSIUM 4.8 mEq/L (3.5-5.1)
[2024-01-03 07:44] LABS: CREATININE 5.7 mg/dL (0.6-1.0)
[2024-01-03 07:50] LABS: ALANINE AMINOTRANSFERASE 10 IU/L (10-49); ALBUMIN 3.9 g/dL (3.2-4.8); ASPARTATE AMINOTRANSFERASE 13 IU/L (<34); BILIRUBIN TOTAL 0.2 mg/dL (0.1-1.0); PHOSPHORUS 6.8 mg/dL (2.5-4.9); PROTEIN TOTAL 6.6 g/dL (6.0-8.3)
[2024-01-03 07:53] LABS: BILIRUBIN DIRECT < 0.1 mg/dL (<=3.0)
[2024-01-03 09:24] LABS: HEMATOCRIT 27.1 % (36.0-48.0); HEMOGLOBIN 8.6 g/dL (12.0-16.0); MEAN CORPUSCULAR HEMOGLOBIN 28.3 pg (28.0-32.0); MEAN CORPUSCULAR HGB CONC 31.8 g/dL (31.0-37.0); MEAN CORPUSCULAR VOLUME 88.9 fL (81.0-99.0); PLATELET 252 x1000/uL (130-400); RED BLOOD CELL COUNT 3.05 mill/uL (4.2-5.4); RED CELL DISTRIBUTION WIDTH 21.8 % (11.6-14.6); WHITE BLOOD COUNT 9.3 x1000/uL (4.5-11.0)
[2024-01-03] MEDS: HYDRALAZINE HCL 100MG TABLET PO SCH (14:53)
[2024-01-03] MEDS: NIFEDIPINE XL 30MG TAB PO SCH (20:14)
[2024-01-04] VITALS (12 sets, daily range): BP systolic 126–163; BP diastolic 57–77; PULSE 73–83; RESP 12–27; TEMP 36.16956–37.00296; O2SAT 79–99
[2024-01-04 06:22] LABS: CHLORIDE 104 mEq/L (98-107); POTASSIUM 4.7 mEq/L (3.5-5.1); SODIUM 137 mEq/L (136-145)
[2024-01-04 06:23] LABS: CALCIUM 9.1 mg/dL (8.7-10.4); CARBON DIOXIDE 23 mEq/L (21-32)
[2024-01-04 06:28] LABS: GLUCOSE 89 mg/dL (70-105); UREA NITROGEN BLOOD 50 mg/dL (9-23)
[2024-01-04 06:30] LABS: ALANINE AMINOTRANSFERASE 9 IU/L (10-49); ALBUMIN 3.7 g/dL (3.2-4.8); ASPARTATE AMINOTRANSFERASE 11 IU/L (<34); BILIRUBIN TOTAL < 0.2 mg/dL (0.1-1.0); PHOSPHORUS 7.5 mg/dL (2.5-4.9)
[2024-01-04 06:43] LABS: BASOPHILS % 1.3 % (0.0-2.0); EOSINOPHILS % 12.1 % (0.0-5.0); HEMATOCRIT. 24.2 % (36.0-48.0); HEMOGLOBIN. 7.8 g/dL (12.0-16.0); LYMPHOCYTES % 8.1 % (20.0-50.0); MEAN CORPUSCULAR HEMOGLOBIN 28.4 pg (28.0-32.0); MEAN CORPUSCULAR VOLUME 88.5 fL (81.0-99.0); MEAN PLATELET VOLUME 9.6 fl (7.4-10.4); MONOCYTES % 6.6 % (2.0-8.0); NEUTROPHILS % 71.9 % (40.0-76.0); PLATELET 229 x1000/uL (130-400); RED BLOOD CELL COUNT 2.73 mill/uL (4.2-5.4); RED CELL DISTRIBUTION WIDTH 21.4 % (11.6-14.6); WHITE BLOOD COUNT 7.7 x1000/uL (4.5-11.0)
[2024-01-04] MEDS ORDERED: LIDOCAINE HCL 1% 10 MG/ML 10ML VIAL ONE (07:12)
[2024-01-04 08:01] LABS: CREATININE 5.7 mg/dL (0.6-1.0)
[2024-01-04 08:02] LABS: BILIRUBIN DIRECT < 0.1 mg/dL (<=3.0)
[2024-01-04 15:48] LABS: INR 0.9; PARTIAL THROMBOPLASTIN TIME 30.2 sec (23.4-31.0); PROTHROMBIN TIME 10.5 sec (9.6-11.0)
[2024-01-04 16:02] LABS: HEPATITIS B SURFACE ANTIGEN NEGATIVE (Negative)
[2024-01-04 16:22] LABS: HEPATITIS A AB IGM NEGATIVE (Negative)
[2024-01-04 16:23] LABS: HEPATITIS B CORE AB IGM NEGATIVE (Negative); HEPATITIS C AB NON REACTIVE (Neg) (Negative)
[2024-01-05] VITALS (17 sets, daily range): BP systolic 127–175; BP diastolic 60–87; PULSE 68–81; RESP 13–22; TEMP 36.22512–36.55848; O2SAT 88–98
[2024-01-05] MEDS ORDERED: HEPARIN 1000 UNITS/ML 10ML ONE (09:22)
[2024-01-05] MEDS ORDERED: LIDOCAINE HCL 1% 10 MG/ML 10ML VIAL ONE (09:22)
[2024-01-05] MEDS: POLYETHYLENE GLYCOL 3350 (17GM) 1 DOSE PACK PO NR (21:12)
[2024-01-06] VITALS (13 sets, daily range): BP systolic 155–190; BP diastolic 75–99; PULSE 82–93; RESP 12–33; TEMP 36.6696–36.9474; O2SAT 85–97
[2024-01-06 07:28] LABS: BASOPHILS % 0.6 % (0.0-2.0); EOSINOPHILS % 12.1 % (0.0-5.0); LYMPHOCYTES % 7.8 % (20.0-50.0); MEAN CORPUSCULAR HGB CONC 32.3 g/dL (31.0-37.0); MEAN CORPUSCULAR VOLUME 86.7 fL (81.0-99.0); MEAN PLATELET VOLUME 9.4 fl (7.4-10.4); MONOCYTES % 8.8 % (2.0-8.0); NEUTROPHILS % 70.7 % (40.0-76.0); PLATELET 218 x1000/uL (130-400); RED BLOOD CELL COUNT 2.51 mill/uL (4.2-5.4); RED CELL DISTRIBUTION WIDTH 20.7 % (11.6-14.6); WHITE BLOOD COUNT 9.2 x1000/uL (4.5-11.0)
[2024-01-06 07:36] LABS: CALCIUM 9.3 mg/dL (8.7-10.4); CARBON DIOXIDE 27 mEq/L (21-32); CHLORIDE 101 mEq/L (98-107); POTASSIUM 4.7 mEq/L (3.5-5.1); SODIUM 136 mEq/L (136-145)
[2024-01-06 07:42] LABS: GLUCOSE 89 mg/dL (70-105); UREA NITROGEN BLOOD 37 mg/dL (9-23)
[2024-01-06 07:44] LABS: PHOSPHORUS 5.7 mg/dL (2.5-4.9)
[2024-01-06 08:09] LABS: HEMATOCRIT. 21.8 % (36.0-48.0)
[2024-01-06 11:47] LABS: BG BASE EXCESS 4.3 mmol/L (-2.0-3.0); BG CARBOXYHEMOGLOBIN 0.8 % (0.5-1.5); BG FRACTION INSPIRED OXYGEN 21; BG HCO3 ACT 29.3 mmol/L (21.0-28.0); BG METHEMOGLOBIN 0.3 % (0.5-1.5); BG OXYGEN SATURATION 79.8 % (94.0-98.0); BG OXYHEMOGLOBIN 78.9 % (94.0-98.0); BG PCO2 46.4 mmHg (32.0-45.0); BG PH 7.418 (7.350-7.450); BG PO2 44.4 mmHg (83.0-108.0); BG SAMPLE SITE RIGHT RADIAL; BG TOTAL HEMOGLOBIN 7.5 g/dL (12.0-16.0); BG VENT MODE ROOM AIR
[2024-01-06] MEDS: TRAMADOL 50MG TABLET PO PRN (21:17)
[2024-01-06] MEDS: EPOETIN ALFA-EPBX 4,000 UNIT/ML VIAL SUBCUT SCH (21:27)
[2024-01-06] MEDS: ONDANSETRON HCL 4MG/2ML INJ IV PRN (21:42)
[2024-01-07] VITALS (21 sets, daily range): BP systolic 135–198; BP diastolic 62–81; PULSE 81–97; RESP 15–20; TEMP 36.50292–37.11408; O2SAT 93–100
[2024-01-07 06:27] LABS: BASOPHILS % 1.1 % (0.0-2.0); EOSINOPHILS % 14.6 % (0.0-5.0); HEMATOCRIT. 24.1 % (36.0-48.0); HEMOGLOBIN. 7.7 g/dL (12.0-16.0); LYMPHOCYTES % 9.8 % (20.0-50.0); MEAN CORPUSCULAR HEMOGLOBIN 28.1 pg (28.0-32.0); MEAN CORPUSCULAR HGB CONC 32.1 g/dL (31.0-37.0); MEAN CORPUSCULAR VOLUME 87.7 fL (81.0-99.0); MEAN PLATELET VOLUME 9.5 fl (7.4-10.4); NEUTROPHILS % 66.5 % (40.0-76.0); PLATELET 229 x1000/uL (130-400); RED BLOOD CELL COUNT 2.75 mill/uL (4.2-5.4); RED CELL DISTRIBUTION WIDTH 20.5 % (11.6-14.6)
[2024-01-07 06:34] LABS: CHLORIDE 99 mEq/L (98-107); POTASSIUM 5.1 mEq/L (3.5-5.1); SODIUM 134 mEq/L (136-145)
[2024-01-07 06:35] LABS: CARBON DIOXIDE 26 mEq/L (21-32)
[2024-01-07 06:40] LABS: CREATININE 4.4 mg/dL (0.6-1.0); GLUCOSE 80 mg/dL (70-105); UREA NITROGEN BLOOD 36 mg/dL (9-23)
[2024-01-07 06:42] LABS: ALANINE AMINOTRANSFERASE 10 IU/L (10-49); ALBUMIN 3.9 g/dL (3.2-4.8); ASPARTATE AMINOTRANSFERASE 16 IU/L (<34)
[2024-01-07 06:43] LABS: BILIRUBIN TOTAL 0.2 mg/dL (0.1-1.0); PHOSPHORUS 6.5 mg/dL (2.5-4.9); PROTEIN TOTAL 6.5 g/dL (6.0-8.3)
[2024-01-07 06:55] LABS: BILIRUBIN DIRECT < 0.1 mg/dL (<=3.0)
[2024-01-07] MEDS ORDERED: BACLOFEN 10MG TABLET PO NR (11:45)
[2024-01-07] MEDS ORDERED: NALOXONE HCL 0.4MG/ML VIAL IV PRN (12:00)
[2024-01-07] MEDS: CYCLOBENZAPRINE 10MG TABLET PO NR (13:11)
[2024-01-07] MEDS: FAMOTIDINE 20MG/2ML VIAL IV SCH (13:11)
[2024-01-07] MEDS ORDERED: AMLODIPINE 5MG TABLET PO SCH (21:00)
[2024-01-08] VITALS (23 sets, daily range): BP systolic 112–176; BP diastolic 55–86; PULSE 71–95; RESP 13–29; TEMP 36.114–37.05852; O2SAT 86–100
[2024-01-08] MEDS: CYCLOBENZAPRINE 10MG TABLET PO SCH (09:12)
[2024-01-08 11:01] LABS: CALCIUM 9.1 mg/dL (8.7-10.4); CARBON DIOXIDE 27 mEq/L (21-32); CHLORIDE 101 mEq/L (98-107); POTASSIUM 5.3 mEq/L (3.5-5.1); SODIUM 135 mEq/L (136-145)
[2024-01-08 11:05] LABS: CREATININE 3.8 mg/dL (0.6-1.0); GLUCOSE 143 mg/dL (70-105); UREA NITROGEN BLOOD 30 mg/dL (9-23)
[2024-01-08 11:07] LABS: PHOSPHORUS 5.4 mg/dL (2.5-4.9)
[2024-01-08 11:08] LABS: MEAN CORPUSCULAR HEMOGLOBIN 27.6 pg (28.0-32.0); MEAN CORPUSCULAR HGB CONC 31.2 g/dL (31.0-37.0); MEAN CORPUSCULAR VOLUME 88.2 fL (81.0-99.0); PLATELET 185 x1000/uL (130-400); RED BLOOD CELL COUNT 2.13 mill/uL (4.2-5.4); WHITE BLOOD COUNT 8.5 x1000/uL (4.5-11.0)
[2024-01-08 11:10] LABS: DIFFERENTIAL COMMENT 1
[2024-01-08 11:11] LABS: HEMOGLOBIN. 5.9 g/dL (12.0-16.0)
[2024-01-08 11:12] LABS: HEMATOCRIT. 18.8 % (36.0-48.0)
[2024-01-08 18:16] LABS: PLATELET ESTIMATE NORMAL
[2024-01-09] VITALS (12 sets, daily range): BP systolic 146–182; BP diastolic 72–99; PULSE 80–106; RESP 12–22; TEMP 36.114–36.44736; O2SAT 93–98
[2024-01-09 00:03] LABS: HEMATOCRIT 22.9 % (36.0-48.0); HEMOGLOBIN 7.6 g/dL (12.0-16.0)
[2024-01-09 05:27] LABS: CARBON DIOXIDE 27 mEq/L (21-32); CHLORIDE 99 mEq/L (98-107); POTASSIUM 5.5 mEq/L (3.5-5.1); SODIUM 133 mEq/L (136-145)
[2024-01-09 05:28] LABS: CALCIUM 9.1 mg/dL (8.7-10.4)
[2024-01-09 05:32] LABS: GLUCOSE 99 mg/dL (70-105)
[2024-01-09 05:33] LABS: UREA NITROGEN BLOOD 35 mg/dL (9-23)
[2024-01-09 05:35] LABS: PHOSPHORUS 5.8 mg/dL (2.5-4.9)
[2024-01-09 06:09] LABS: CREATININE 4.2 mg/dL (0.6-1.0)
[2024-01-09 06:32] LABS: HEMATOCRIT. 23.7 % (36.0-48.0); HEMOGLOBIN. 7.7 g/dL (12.0-16.0); MEAN CORPUSCULAR HEMOGLOBIN 29.5 pg (28.0-32.0); MEAN CORPUSCULAR HGB CONC 32.6 g/dL (31.0-37.0); MEAN CORPUSCULAR VOLUME 90.6 fL (81.0-99.0); MEAN PLATELET VOLUME 9.4 fl (7.4-10.4); PLATELET 183 x1000/uL (130-400); RED BLOOD CELL COUNT 2.62 mill/uL (4.2-5.4); RED CELL DISTRIBUTION WIDTH 18.5 % (11.6-14.6); WHITE BLOOD COUNT 8.7 x1000/uL (4.5-11.0)
[2024-01-09 06:54] LABS: DIFFERENTIAL COMMENT 1
[2024-01-09] MEDS: SODIUM ZIRCONIUM CYCLOSILICATE 10GM/PACKET PO NR ×2 (13:22→21:46)
[2024-01-09 14:21] LABS: ANISOCYTOSIS 2+; PLATELET ESTIMATE NORMAL
[2024-01-10] VITALS (24 sets, daily range): BP systolic 123–177; BP diastolic 59–102; PULSE 69–98; RESP 14–24; TEMP 36.16956–36.6696; O2SAT 88–100
[2024-01-10 05:26] LABS: CALCIUM 9.5 mg/dL (8.7-10.4); CARBON DIOXIDE 27 mEq/L (21-32); CHLORIDE 100 mEq/L (98-107); POTASSIUM 5.6 mEq/L (3.5-5.1); SODIUM 133 mEq/L (136-145)
[2024-01-10 05:32] LABS: GLUCOSE 87 mg/dL (70-105); UREA NITROGEN BLOOD 46 mg/dL (9-23)
[2024-01-10 05:34] LABS: PHOSPHORUS 6.4 mg/dL (2.5-4.9)
[2024-01-10 05:36] LABS: HEMATOCRIT. 22.5 % (36.0-48.0); HEMOGLOBIN. 7.2 g/dL (12.0-16.0); MEAN CORPUSCULAR HGB CONC 32.2 g/dL (31.0-37.0); MEAN PLATELET VOLUME 9.5 fl (7.4-10.4); PLATELET 211 x1000/uL (130-400); WHITE BLOOD COUNT 9.3 x1000/uL (4.5-11.0)
[2024-01-10 06:16] LABS: CREATININE 5.1 mg/dL (0.6-1.0)
[2024-01-10 06:49] LABS: DIFFERENTIAL COMMENT 1
[2024-01-10 14:11] LABS: ANISOCYTOSIS 2+; PLATELET ESTIMATE NORMAL
[2024-01-10] MEDS ORDERED: LIDOCAINE HCL 1% 10 MG/ML 10ML VIAL ONE ×2 (14:48→14:58)
[2024-01-10] MEDS: CEFAZOLIN 1000MG PREMIX 50 ML IV NR (15:00)
[2024-01-10] MEDS: SODIUM ZIRCONIUM CYCLOSILICATE 10GM/PACKET PO NR ×2 (16:37→21:35)
== END 2024-01-10 23:04 | DRG 673 ==
LOC: ER 20:21 → 5EST 22:36 → EDBEDREQTM 22:39 → EDBEDREQ 22:39 → EDBEDREQSVC 12-31 02:19 → 5EST 12-31 13:46
PROVIDERS: ADMIT Internal Medicine; ATTEND Internal Medicine
PROC: 02HV33Z Insertion of Infusion Device into Superior Vena Cava, Percutaneous Approach (ICD-10-PCS; 2024-01-04)
PROC: B548ZZA Ultrasonography of Superior Vena Cava, Guidance (ICD-10-PCS; 2024-01-04)
PROC: 5A1D70Z Performance of Urinary Filtration, Intermittent, Less than 6 Hours Per Day (ICD-10-PCS; 2024-01-05)
PROC: 05HN33Z Insertion of Infusion Device into Left Internal Jugular Vein, Percutaneous Approach (ICD-10-PCS; 2024-01-05)
PROC: B544ZZA Ultrasonography of Left Jugular Veins, Guidance (ICD-10-PCS; 2024-01-05)
PROC: 5A1D70Z Performance of Urinary Filtration, Intermittent, Less than 6 Hours Per Day (ICD-10-PCS; 2024-01-07)
PROC: 30233N1 Transfusion of Nonautologous Red Blood Cells into Peripheral Vein, Percutaneous Approach (ICD-10-PCS; principal; 2024-01-08)
PROC: 5A1D70Z Performance of Urinary Filtration, Intermittent, Less than 6 Hours Per Day (ICD-10-PCS; 2024-01-10)
PROC: 0JH63XZ Insertion of Tunneled Vascular Access Device into Chest Subcutaneous Tissue and Fascia, Percutaneous Approach (ICD-10-PCS; 2024-01-10)
PROC: 02HV33Z Insertion of Infusion Device into Superior Vena Cava, Percutaneous Approach (ICD-10-PCS; 2024-01-10)
PROC: B548ZZA Ultrasonography of Superior Vena Cava, Guidance (ICD-10-PCS; 2024-01-10)
DX: N17.9 Acute kidney failure, unspecified (principal); J96.90 Respiratory failure, unspecified, unspecified whether with hypoxia or hypercapnia; I13.2 Hypertensive heart and chronic kidney disease with heart failure and with stage 5 chronic kidney disease, or end stage renal disease; E87.20 Acidosis, unspecified; I69.351 Hemiplegia and hemiparesis following cerebral infarction affecting right dominant side; I31.39 Other pericardial effusion (noninflammatory); R18.8 Other ascites; I50.32 Chronic diastolic (congestive) heart failure; N18.6 End stage renal disease; I16.0 Hypertensive urgency; Z20.822 Contact with and (suspected) exposure to COVID-19; I25.10 Atherosclerotic heart disease of native coronary artery without angina pectoris; N32.89 Other specified disorders of bladder; I48.91 Unspecified atrial fibrillation; J44.89 Other specified chronic obstructive pulmonary disease; N20.0 Calculus of kidney; E78.5 Hyperlipidemia, unspecified; E83.42 Hypomagnesemia; E11.22 Type 2 diabetes mellitus with diabetic chronic kidney disease; Z87.442 Personal history of urinary calculi; Z79.899 Other long term (current) drug therapy; Z82.49 Family history of ischemic heart disease and other diseases of the circulatory system; Z99.2 Dependence on renal dialysis; D63.1 Anemia in chronic kidney disease
CPT/HCPCS: 36415; 36556; 36558; 36573; 36600; 71045; 74176; 76700; 76937; 77001; 80048; 80061; 80076; 81003; 82375; 82550; 82805; 83735; 84100; 84484; 85014; 85018; 85025; 85027; 86705; 86706; 86709; 86850; 86900; 86920; 87340; 87426; 90935; 93005; 93306; 97162; 99291; C1725; C1750; C1752; C1769; C1887; C1893; J0360; J0690; J0885; J1642; J1644; J1940; J2405; J3490; J8597; P9016